=== PATIENT | female | born 1995 | race Caucasian/White ===

== ENCOUNTER 2017-01-22 13:33 | Inpatient (IN) | payer OTHER ==
[2017-01-22 14:24] LABS: #Basophils 0.1 thou/uL (0.0-0.2); #Eosinphils 0.2 thou/uL (0.0-0.7); #Lymphocytes 1.7 thou/uL (1.20-3.40); #Monocytes 0.3 thou/uL (0.11-0.59); #Neutrophils 9.9 thou/uL (1.40-6.50); %Basophils 0.5 % (0.0-1.0); %Eosinophils 1.7 % (0.0-10.0); %Lymphocytes 14.2 % (28.0-48.0); %Monocytes 2.8 % (0.0-4.0); Hematocrit 37.1 % (36.0-47.0); Mean Platelet Volume 10.7 fL (7.4-10.4); Red Blood Cell (RBC) Count 4.78 mill/uL (4.00-5.20); White Blood Cell (WBC) Count 12.2 thou/uL (4.8-10.8)
[2017-01-22] MEDS ORDERED: Ondansetron ODT 4 MG TAB ONE (14:26)
[2017-01-22 14:53] LABS: ALT (SGPT) 35 U/L (8-55); AST (SGOT) 63 U/L (5-34); Alkaline Phosphatase 159 U/L (40-150); Anion Gap 14 mmol/L (10-20); BUN (Urea Nitrogen) 6 mg/dL (7.0-18.7); Bilirubin, Total 0.7 mg/dL (0.2-1.2); Calc. Creatinine Clearance 0 mL/min (70-130); Calcium 9.6 mg/dL (7.8-10.44); Carbon Dioxide 22 mmol/L (22-29); Chloride 108 mmol/L (98-107); Estimated GFR-MDRD Greater than 90; Globulin 4.1 g/dL (2.4-3.5); Lipase 15 U/L (8-78); Protein, Total 7.8 g/dL (6.0-8.3)
[2017-01-22 15:21] LABS: Bilirubin Negative (Negative); Blood, Urine Negative (Negative); Glucose, Urine (Dipstick) Negative (Negative); Ketone, Urine Negative (Negative); Nitrite Negative (Negative); Protein, Urine (Dipstick) Trace mg/dL (Neg-Trace)
[2017-01-22 15:23] LABS: Bacteria/HPF Rare-Few HPF (None Seen); Hyaline Casts/LPF 4-6 HYALINE CAST LPF (0-3 Hyaline); RBC/HPF 0-3 HPF (0-3); Squamous Epithelial 0-3 HPF (0-3)
[2017-01-22 15:37] LABS: Yeast-All Forms None Seen HPF (None Seen)
--- NOTE | 2017-01-22 15:45 | ULT ---
RIGHT UPPER QUADRANT SONOGRAM: HISTORY: Right upper quadrant pain. FINDINGS: Multiple echogenic foci are again demonstrated within the dependent portion of the gallbladder lumen . There is no gallbladder wall thickening or pericholecystic fluid. Common duct is 0.5 cm diameter . Liver is unremarkable without focal mass or intrahepatic biliary dilatation. No free fluid is ap parent. IMPRESSION: Cholelithiasis. No evidence of acute biliary obstruction. POS: [facility]
[2017-01-22] MEDS ORDERED: Promethazine HCl 25 MG/ML VIAL IM PRN (17:00)
[2017-01-22] MEDS ORDERED: Ondansetron HCl/PF 4 MG/2 ML Vial IVP PRN (17:00)
[2017-01-22] MEDS ORDERED: Dextrose 5% in Water 1,000 ML IV PRN (17:00)
[2017-01-22] MEDS ORDERED: Dextrose 50% Abboject 50 ML SYRINGE SLOW IVP PRN (17:00)
[2017-01-22] MEDS ORDERED: Morphine Sulfate 2 MG/ML SYRINGE SLOW IVP PRN (17:00)
[2017-01-22] MEDS: D5 1/2 NS w/20 mEq KCL 1,000 ML IV SCH (20:18)
[2017-01-22] MEDS: Famotidine/PF 20 mg/2ml Vial SLOW IVP SCH (20:19)
--- NOTE | 2017-01-22 20:53 | HP ---
CHIEF COMPLAINT: Right upper quadrant abdominal pain. HISTORY OF PRESENT ILLNESS: The patient is a 21-year-old female who is 2 weeks , who deve loped severe right upper quadrant pain this morning after eating, associated with nausea. No vomiti ng, no fevers or chills. She has had several episodes of this while she was . PAST MEDICAL HISTORY: Asthma. PAST SURGICAL HISTORY: None. MEDICATIONS: None. ALLERGIES: No known drug allergies. SOCIAL HISTORY: She lives with her boyfriend. No tobacco or alcohol. She is unemployed. FAMILY HISTORY: Lupus. PHYSICAL EXAMINATION: VITAL SIGNS: Temperature 98.4, pulse 92 and blood pressure 116/71. GENERAL: The patient is awake and alert, in minimal distress. She appeared pale. HEENT: No obvious jaundice. LUNGS: Clear. HEART: Regular rate and rhythm. ABDOMEN: Soft, but tender in the right upper quadrant, plus/minus Madrigal sign. No palpable masses. EXTREMITIES: Unremarkable. LABORATORY DATA: White count 12, hemoglobin and hematocrit of 11 and 37, platelet count 354. Elect rolytes show a total bilirubin of 0.7, AST elevated at 63 and alkaline phosphatase at 159. IMAGING DATA: Ultrasound shows multiple cholelithiasis with no wall thickening or pericholecystic f luid. The common duct is 0.5 cm in diameter. ASSESSMENT: Early acute cholecystitis with elevated liver functions. PLAN: Admit laparoscopic cholecystectomy with cholangiogram. I have discussed the planned procedur e as well as risk of bleeding, infection, injury to bile duct, bowel and need to open. She understa nds and gives informed consent.
[2017-01-23 02:49] VITALS: BMI 26.5
[2017-01-23] MEDS: D5 1/2 NS w/20 mEq KCL 1,000 ML IV SCH ×4 (04:39→23:35)
[2017-01-23] MEDS ORDERED: Bupivacaine 0.25% HCL 30 ML VIAL ONE (09:00)
[2017-01-23] MEDS ORDERED: Iothalamate Meglumine 60% 50 ML VIAL FS ONE (09:00)
[2017-01-23] MEDS ORDERED: FLU VACC QS2017-18 36 mo. & older 0.5 ML SYRINGE IM ONE (09:00)
[2017-01-23] MEDS ORDERED: Midazolam HCl 2 mg/2 ml Vial ONE (09:01)
[2017-01-23] MEDS ORDERED: Fentanyl 100 MCG/2 ML VIAL ONE ×2 (09:01→10:25)
[2017-01-23] MEDS: Famotidine/PF 20 mg/2ml Vial SLOW IVP SCH ×2 (09:06→21:00)
[2017-01-23] MEDS ORDERED: Propofol 200 MG/20 ML VIAL ONE (09:15)
[2017-01-23] MEDS ORDERED: Lidocaine 1% PF 5 ML VIAL ONE (09:15)
[2017-01-23] MEDS ORDERED: Glycopyrrolate 0.2 MG/ML 5 ML SYRINGE ONE (09:15)
[2017-01-23] MEDS ORDERED: Ketorolac Tromethamine 30 MG/ML VIAL ONE (09:15)
[2017-01-23] MEDS ORDERED: Ondansetron HCl/PF 4 MG/2 ML Vial ONE (09:15)
[2017-01-23] MEDS ORDERED: Dexamethasone 20 MG/5 ML VIAL ONE (09:15)
[2017-01-23] MEDS ORDERED: Meperidine HCl/PF 25 MG/ML VIAL SLOW IVP PRN (09:39)
[2017-01-23] MEDS ORDERED: Ondansetron HCl/PF 4 MG/2 ML Vial IVP PRN ×2 (09:39→10:19)
[2017-01-23] MEDS ORDERED: Promethazine HCl 25 MG/ML VIAL SLOW IVP PRN (09:39)
[2017-01-23] MEDS ORDERED: Promethazine HCl 25 MG/ML VIAL IM PRN ×2 (09:39→10:19)
[2017-01-23] MEDS ORDERED: Albuterol Sulfate 1.25 MG/3 ML NEB ONE (10:17)
[2017-01-23] MEDS ORDERED: Calcium Carbonate 500 MG ChewTAB PO PRN (10:19)
[2017-01-23] MEDS ORDERED: Mag-Al 1200 mg/1200 mg/30 ML UDCUP PO PRN (10:19)
[2017-01-23] MEDS ORDERED: Dextrose 5% in Water 1,000 ML IV PRN (10:19)
[2017-01-23] MEDS ORDERED: Dextrose 50% Abboject 50 ML SYRINGE SLOW IVP PRN (10:19)
[2017-01-23] MEDS ORDERED: HYDROcodone/Acetaminophen 10/325 mg Tablet PO PRN ×2 (10:19)
--- NOTE | 2017-01-23 10:41 | RAD ---
INTRAOPERATIVE CHOLANGRAM FLUOROSCOPY: HISTORY: Cholecystitis. FINDINGS: Intraoperative fluoroscopy was provided for cholangiogram as performed by Dr. Obrien. Single spot fl uoroscopic image of the right upper quadrant shows operative hardware and a cystic duct remnant. Th ere is contrast opacification of a distended common duct. Meniscus sign is present at the central c ommon duct. Contrast has not passed into the duodenum, suggesting obstruction of the central common duct. Fluoro time=2 seconds. POS: [facility]
--- NOTE | 2017-01-23 10:42 | OP ---
PREOPERATIVE DIAGNOSIS: Symptomatic cholelithiasis with elevated liver function tests. SURGEON: Darren Obrien M.D. PROCEDURE PERFORMED: Laparoscopic cholecystectomy with cholangiogram. INDICATIONS: A 21-year-old female 2 weeks with severe right upper quadrant pain to the b day [facility]. Ultrasound showed cholelithiasis. She had some mild elevation of liver function tests. FINDINGS: She has single stone. The cystic duct was a little dilated. Cholangiogram showed what a ppears to be a distal common bile duct obstruction consistent with choledocholithiasis. DESCRIPTION OF THE PROCEDURE: After informed consent was obtained, the patient was taken to the ope rating room and given general endotracheal anesthesia. She was placed in supine position. The abdo men was prepped and draped in the usual fashion. Local anesthesia infiltrated subcutaneously and de ep, a subumbilical incision was performed. The subcu divided sharply. Fascia grasped and two stay sutures of 0 Vicryl placed to either side of midline. Midline incised. Digital palpation revealed no local adhesions. A blunt 10-12 mm trocar inserted. Pneumoperitoneum was created to a pressure o f 15 mmHg. A 0 degree laparoscope inserted and under direct vision, three 5 mm ports placed subcosta lly. The gallbladder grasped and advanced superiorly. Peritoneum lysed distally revealed small cys tic duct and artery. A clip was placed at the base of the gallbladder. An incision made in the cys tic duct and an Arrow cholangiocatheter inserted. Intraoperative cholangiogram performed, it did no t show any definite filling defects in the duct, but there was no flow into the duodenum and it appe ared as though it had a concave appearance like retained stone. Attempt at flushing this , bu t we got zero flow into the duodenum. The duct was triply ligated with Hemoclips and divided. The artery triply ligated with Hemoclips and divided. The gallbladder was removed from its fossa utiliz ing electrocautery, removed from the abdomen through the umbilical port. Hemostasis was assured. T rocars and retractors removed. The fascia closed with interrupted 0 Vicryl suture. The skin closed with interrupted 4-0 Rapide. Dermabond applied. The patient tolerated the procedure well and martinez sferred to recovery in good condition. Sponge and needle count verified correct x2.
[2017-01-23] MEDS: Ketorolac Tromethamine 30 MG/ML VIAL IVP SCH ×3 (12:48→23:31)
[2017-01-23 12:53] LABS: ALT (SGPT) 49 U/L (8-55); AST (SGOT) 90 U/L (5-34); Alkaline Phosphatase 168 U/L (40-150); Bilirubin, Direct 0.4 mg/dL (0.1-0.3); Bilirubin, Total 0.7 mg/dL (0.2-1.2); Protein, Total 6.7 g/dL (6.0-8.3)
--- NOTE | 2017-01-23 16:55 | CON ---
DATE OF CONSULTATION: 01/23/2017 REQUESTING PHYSICIAN: Dr. Obrien. REASON FOR CONSULTATION: Positive intraoperative cholangiogram. HISTORY OF PRESENT ILLNESS: Monica Heck is a very pleasant 21-year-old woman who is 2 weeks with a prior history only of asthma. She was admitted yesterday after acutely developing right upper quadrant pain and nausea. She had had a few episodes of this during her . Th is escalated prompting her presentation. She was found to have mild elevation in LFTs and an ultras ound showing cholelithiasis. So this morning, she underwent laparoscopic cholecystectomy with Dr. Claudette rivera. This went well. He performed an intraoperative cholangiogram and this demonstrated dilation of the proximal common hepatic duct with a meniscus sign in the central common bile duct and failure of contrast to pass into the duodenum, suggesting central common duct obstruction. The patient is currently feeling okay. She does continue to have abdominal pain in the upper abdomen. No vomiting since that procedure. REVIEW OF SYSTEMS: Full review of systems including constitutional, head, eyes, ears, nose, throat, GI, , cardiovascular, respiratory, musculoskeletal, and neurologic systems is negative except as noted in the HPI. PAST MEDICAL HISTORY: Asthma, cholelithiasis, cholecystectomy earlier today. ALLERGIES: No known drug allergies. OUTPATIENT MEDICATIONS: None. INPATIENT MEDICATIONS: Cefoxitin 2 grams q.8 hours IV, Toradol 30 mg IV q.6 hours, morphine IV p.r. n. SOCIAL HISTORY: No smoking or alcohol use. FAMILY HISTORY: Positive for lupus. PHYSICAL EXAMINATION: VITAL SIGNS: Temperature 97.6, pulse 59, blood pressure 95/62, 96% oxygen saturation on room air. GENERAL: A 21-year-old woman lying in bed comfortably in no distress. SKIN: No jaundice, no rashes were palpable. EYES: No scleral icterus. Extraocular movements intact. ENT: Mucous membranes moist, no oral lesions. LYMPH: No submandibular, supraclavicular lymphadenopathy. THYROID: Nontender to palpation. HEART: Regular rate and rhythm. LUNGS: Clear to auscultation bilaterally. ABDOMEN: Bowel sounds hypoactive, soft, some tenderness to palpation in the upper abdomen, but no g uarding, rebound tenderness. EXTREMITIES: No peripheral edema. VESSELS: Radial pulses 2+ bilaterally. NEUROLOGICAL: Cranial nerves II-XII intact bilaterally. No focal deficits. LABORATORY STUDIES: WBC 12.2, hemoglobin 11.4, platelets 354. Sodium 140, potassium 3.6, BUN 6, cr eatinine 0.66. Total bilirubin 0.7, direct bilirubin 0.4, alkaline phosphatase 168, AST 90, ALT 49, lipase 15. IMAGING STUDIES: Abdominal ultrasound from yesterday demonstrated cholelithiasis and common bile du ct measuring only 5 mm. However, intraoperative cholangiogram from earlier today demonstrated a mishel ling defect in the central common bile duct and failure of contrast to fill the common bile duct dis tally or enter the duodenum with proximal biliary dilation. ASSESSMENT AND PLAN: Choledocholithiasis. The patient's intraoperative cholangiogram findings are consistent with retained stone in the common bile duct. I had a long discussion with the patient ex plaining that endoscopic retrograde cholangiopancreatography is indicated for removal of this stone and clearance of the common bile duct. We discussed the benefits but also risks of the procedure in cluding post-ERCP pancreatitis. The patient expresses understanding and desires to proceed. We david l plan for ERCP tomorrow. Further recommendations following ERCP.
[2017-01-23] MEDS: Famotidine 20 MG TAB PO SCH (20:55)
[2017-01-24] MEDS: Ketorolac Tromethamine 30 MG/ML VIAL IVP SCH ×4 (06:07→23:45)
[2017-01-24 06:33] LABS: #Basophils 0.1 thou/uL (0.0-0.2); #Lymphocytes 2.6 thou/uL (1.20-3.40); #Monocytes 0.3 thou/uL (0.11-0.59); %Basophils 0.5 % (0.0-1.0); %Eosinophils 0.3 % (0.0-10.0); Hematocrit 31.2 % (36.0-47.0); Mean Platelet Volume 9.9 fL (7.4-10.4); Red Blood Cell (RBC) Count 3.97 mill/uL (4.00-5.20)
[2017-01-24 06:58] LABS: ALT (SGPT) 64 U/L (8-55); AST (SGOT) 79 U/L (5-34); Alkaline Phosphatase 167 U/L (40-150); Anion Gap 10 mmol/L (10-20); BUN (Urea Nitrogen) Less than 4 mg/dL (7.0-18.7); Bilirubin, Direct 0.2 mg/dL (0.1-0.3); Bilirubin, Total 0.4 mg/dL (0.2-1.2); Calc. Creatinine Clearance 183 mL/min (70-130); Calcium 8.8 mg/dL (7.8-10.44); Carbon Dioxide 23 mmol/L (22-29); Chloride 109 mmol/L (98-107); Estimated GFR-MDRD Greater than 90; Globulin 3.1 g/dL (2.4-3.5); Lipase 397 U/L (8-78); Protein, Total 6.1 g/dL (6.0-8.3)
[2017-01-24] MEDS: Famotidine 20 MG TAB PO SCH ×2 (08:38→21:01)
[2017-01-24] MEDS: Famotidine/PF 20 mg/2ml Vial SLOW IVP SCH ×2 (08:40→21:10)
[2017-01-24] MEDS ORDERED: Fentanyl 100 MCG/2 ML VIAL ONE (09:15)
[2017-01-24] MEDS ORDERED: Iothalamate Meglumine 60% 50 ML VIAL FS ONE (09:34)
[2017-01-24] MEDS ORDERED: Indomethacin 50 MG SUPP ONE (09:52)
[2017-01-24] MEDS ORDERED: Lidocaine 2% PF 10 ML AMP (For Epidural Use) ONE (10:00)
[2017-01-24] MEDS ORDERED: PHENYLEPHRINE-NS 100 MCG/ML 10 ML SYRINGE ONE (10:00)
[2017-01-24] MEDS ORDERED: Succinylcholine Chloride 20 MG/ML 10 ml SYRINGE FS ONE (10:00)
[2017-01-24] MEDS ORDERED: Propofol 200 MG/20 ML VIAL ONE (10:00)
[2017-01-24] MEDS ORDERED: Ondansetron HCl/PF 4 MG/2 ML Vial ONE (10:00)
[2017-01-24] MEDS ORDERED: Dexamethasone 20 MG/5 ML VIAL ONE (10:00)
[2017-01-24] MEDS ORDERED: Promethazine HCl 25 MG/ML VIAL SLOW IVP PRN (10:39)
[2017-01-24] MEDS ORDERED: Promethazine HCl 25 MG/ML VIAL IM PRN (10:39)
[2017-01-24] MEDS ORDERED: HYDROmorphone 2 MG/ML VIAL SLOW IVP PRN (10:39)
[2017-01-24] MEDS ORDERED: Ondansetron HCl/PF 4 MG/2 ML Vial IVP PRN (10:39)
--- NOTE | 2017-01-24 11:00 | RAD ---
ERCP INTRAOPERATIVE FLUOROSCOPY: HISTORY: Cholelithiasis. FINDINGS: Intraoperative fluoroscopy was provided for ERCP as performed by Dr. Scott. Single spot fluoroscopic image shows endoscopy catheter overlying the duodenum. There is contrast opacification of a nondil ated central common duct without focal filling defect evident. Metallic clips overlie the cystic du ct. POS: [facility]
[2017-01-24] MEDS ORDERED: Enoxaparin Sodium 40 MG/0.4 ML SYRINGE SC SCH (11:30)
[2017-01-24] MEDS: D5 1/2 NS w/20 mEq KCL 1,000 ML IV SCH (11:30)
--- NOTE | 2017-01-24 11:33 | PRG ---
DATE OF SERVICE: 01/24/2017 SUBJECTIVE: Patient is status post laparoscopic cholecystectomy yesterday on-call to have her ERCP. Pain is fine. No nausea. She is n.p.o. PHYSICAL EXAMINATION: VITAL SIGNS: Temperature 98.6, pulse 54, blood pressure 101/59. She looks fine. Really no obvious jaundice. LUNGS: Clear. HEART: Regular rate and rhythm. ABDOMEN: Soft. Postop tender. Incision is healing well. LABORATORY DATA: Bilirubin is normal. AST 79, ALT 64, alk phos 167, lipase 397. ASSESSMENT: Obstructed common duct consistent with retained stone. PLAN: ERCP today.
[2017-01-24] MEDS: Enoxaparin Sodium 40 MG/0.4 ML SYRINGE SC SCH ×2 (11:41→11:42)
--- NOTE | 2017-01-24 11:51 | OP ---
DATE OF PROCEDURE: 01/24/2017 GI ENDOSCOPY NOTE SURGEON: Rajeev Scott M.D. TRANSITION MGR RN SURGEON: None. PROCEDURE: Endoscopic retrograde cholangiopancreatography with biliary sphincterotomy and balloon s weep of common bile duct. INDICATIONS: A 21-year-old woman who underwent laparoscopic cholecystectomy yesterday with intraope rative cholangiogram showing meniscus and filling defect in the mid common bile duct consistent with choledocholithiasis. MEDICATIONS: 1. See anesthesia record. 2. Indomethacin 100 mg per rectum. FINDINGS: After discussion of the risks, benefits and alternatives of the procedure, informed conse nt was obtained and witnessed. Pre-endoscopic cardiopulmonary examination was satisfactory. Timeou t was performed before sedation was achieved. Sedation was achieved with anesthesia assistance in [facility] endoscopy unit. The patient was endotracheally intubated and placed in the semiprone position on the fluoroscopy table. A Pentax adult side-viewing duodenoscope was advanced through the mouth bey ond the esophagus and stomach and into the second portion of the duodenum. The ampulla was brought into view with the endoscope in the short position. The ampulla appeared erythematous and edematous . There was free flow of bile from the ampulla. Using a triple lumen dome tip sphincterotome and 0 .035 wire, we were able to selectively cannulate the common bile duct. The guidewire was passed up into the left intrahepatic system. Cholangiogram was then performed. This demonstrated a nondilate d bile duct with good filling of the right and left ducts as well as the peripheral branches. There were no clear filling defects noted on cholangiogram except for a possible meniscal sign in the pankaj y distal common bile duct. At this point, a biliary sphincterotomy was performed. The sphincteroto me was then exchanged for an 8-12 mm extraction balloon. This was passed up into the common bile du ct. Multiple sweeps were made of the common bile duct with the balloon fully inflated. The balloon was able to pass out of the ampulla easily. There were no stones or sludge extracted. Clear bile and contrast material flowed freely out of the ampulla. Occlusion cholangiogram showed clear common bile duct, one more sweep was made to sweep out excess contrast. The working apparatus was then wi thdrawn and the endoscope was withdrawn suctioning out excess air and fluid and the procedure was co mplete. Post-procedure fluoroscopic images demonstrated no retroperitoneal or subdiaphragmatic free air. The patient tolerated the procedure well. There were no immediate post-procedure complicatio ns. Note that she received 100 mg of rectal indomethacin during the procedure as prophylaxis agains t pancreatitis. IMPRESSION: 1. Normal common bile duct. 2. Edematous and erythematous ampulla, likely representing trauma from recent spontaneous passage o f common bile duct stone. 3. Successful biliary sphincterotomy and clear balloon sweep of the common bile duct. RECOMMENDATIONS: 1. Clear liquid diet, then advance diet as tolerated later today. 2. Monitor for any potential post-ERCP complications, including pancreatitis.
[2017-01-25] MEDS: Ketorolac Tromethamine 30 MG/ML VIAL IVP SCH ×2 (05:33→11:58)
[2017-01-25] MEDS: Famotidine 20 MG TAB PO SCH (09:00)
[2017-01-25] MEDS: Famotidine/PF 20 mg/2ml Vial SLOW IVP SCH (09:00)
[2017-01-25] MEDS ORDERED: Enoxaparin Sodium 40 MG/0.4 ML SYRINGE SC SCH (09:00)
--- NOTE | 2017-01-25 09:23 | PRG ---
DATE OF SERVICE: 01/25/2017 GI INPATIENT DAILY PROGRESS NOTE SUBJECTIVE: Ms. Heck is feeling a lot better today. No nausea or vomiting or abdominal pain. She is tolerating a regular diet. She is having bowel movements. She is eager to go home. OBJECTIVE: VITAL SIGNS: Temperature 97.8, pulse 57, blood pressure 127/82, 99% oxygen saturation on room air. GENERAL: No acute distress. HEART: Regular rate and rhythm. LUNGS: Clear to auscultation bilaterally. ABDOMEN: Soft and nontender to palpation. EXTREMITIES: No peripheral edema. ASSESSMENT AND PLAN: 1. Early cholecystitis, status post cholecystectomy. 2. Choledocholithiasis, now status post successful endoscopic retrograde cholangiopancreatography w ith biliary sphincterotomy and clear sweep of the common bile duct yesterday. There is no evidence of post endoscopic retrograde cholangiopancreatography pancreatitis. The patient seems to be recove ring well. From a GI standpoint, she could be discharged home. GI will sign off, but please call b ack with questions or concerns.
--- NOTE | 2017-01-25 11:24 | DIS ---
DISCHARGE DIAGNOSIS: Acute cholecystitis, abnormal cholangiogram. PROCEDURES DURING ADMISSION: Laparoscopic cholecystectomy with cholangiogram and endoscopic retrogr jane cholangiopancreatography with sphincterotomy. HOSPITAL COURSE: The patient was admitted. She had elevated liver function tests. She had gallsto abhijeet. She was taken to the operating room and underwent laparoscopic cholecystectomy with cholangiog kaylie. Cholangiogram showed no flow into the duodenum with a filling defect. GI was consulted. ERCP with sphincterotomy performed. Postoperatively, she did well. She is hungry. She is tolerating d iet well. Her pain is controlled on p.o. medications. She is discharged home on hydrocodone and Zo yeimi. She will follow up with me in 2 weeks.
[2017-01-25 11:32] VITALS: BP 102/63; TEMP 97.7
== END 2017-01-25 13:00 | disposition home or self-care (01) | DRG 769 ==
LOC: ERS 13:33 → SURG B 18:20
PROVIDERS: ADMIT Surgery; ATTEND Surgery
PROC: 0FT44ZZ Resection of Gallbladder, Percutaneous Endoscopic Approach (ICD-10-PCS; principal; 2017-01-23)
PROC: BF100ZZ Fluoroscopy of Bile Ducts using High Osmolar Contrast (ICD-10-PCS; 2017-01-23)
PROC: 0FJB8ZZ Inspection of Hepatobiliary Duct, Via Natural or Artificial Opening Endoscopic (ICD-10-PCS; 2017-01-24)
PROC: BF100ZZ Fluoroscopy of Bile Ducts using High Osmolar Contrast (ICD-10-PCS; 2017-01-24)
DX: O99.63 Diseases of the digestive system complicating the puerperium (principal); K80.00 Calculus of gallbladder with acute cholecystitis without obstruction; J45.909 Unspecified asthma, uncomplicated; R93.2 Abnormal findings on diagnostic imaging of liver and biliary tract; Z83.2 Family history of diseases of the blood and blood-forming organs and certain disorders involving the immune mechanism
CPT/HCPCS: 36415; 47532; 74330; 76705; 80053; 80076; 81003; 81015; 81025; 83690; 85025; 87086; 88304; 94760; 96361; 96374; J0131; J0694; J1100; J1610; J1650; J1885; J2001; J2250; J2270; J2405; J2704; J3010; J7050; Q0162; Q9961; S0020; S0028

== ENCOUNTER 2017-07-20 08:45 | Emergency (ER) | payer MEDICAID, OTHER ==
[2017-07-20 09:23] LABS: #Eosinphils 0.3 thou/uL (0.0-0.7); #Lymphocytes 2.2 thou/uL (1.20-3.40); #Monocytes 0.3 thou/uL (0.11-0.59); #Neutrophils 2.7 thou/uL (1.40-6.50); %Basophils 0.1 % (0.0-1.0); %Eosinophils 4.8 % (0.0-10.0); %Lymphocytes 40.3 % (28.0-48.0); %Neutrophils 48.8 % (31.0-61.0); Hemoglobin 11.4 g/dL (12.0-16.0); Mean Corpuscular HGB CONC 32.1 g/dL (32.0-36.0); Mean Corpuscular Hemoglobin 24.7 pg (25.0-35.0); Mean Corpuscular Volume 76.8 fl (77.0-87.0); Mean Platelet Volume 9.3 fL (7.4-10.4); Platelet Count 234 thou/uL (130-400); RBC Distribution Width 16.1 % (11.5-14.5); Red Blood Cell (RBC) Count 4.61 mill/uL (4.00-5.20); White Blood Cell (WBC) Count 5.4 thou/uL (4.8-10.8)
[2017-07-20 09:38] LABS: BHCG - Serum POSITIVE (NEGATIVE); Pregs Control Background? CLEAR/WHITE (CLR/WHITE); Pregs Control Bar Appear? YES (CONTROL BAR)
[2017-07-20 09:46] LABS: ALT (SGPT) 21 U/L (8-55); AST (SGOT) 24 U/L (5-34); Albumin 3.7 g/dL (3.5-5.0); Alkaline Phosphatase 73 U/L (40-150); Anion Gap 9 mmol/L (10-20); BUN (Urea Nitrogen) 4 mg/dL (7.0-18.7); Bilirubin, Total 0.6 mg/dL (0.2-1.2); Calc. Creatinine Clearance 0 mL/min (70-130); Calcium 8.7 mg/dL (7.8-10.44); Carbon Dioxide 21 mmol/L (22-29); Chloride 108 mmol/L (98-107); Estimated GFR-MDRD Greater than 90; Globulin 3.3 g/dL (2.4-3.5); Glucose 89 mg/dL (70-105); Sodium 134 mmol/L (136-145)
--- NOTE | 2017-07-20 11:15 | ULT ---
PELVIC ULTRASOUND: History: 21-year-old female with pelvic pain. Technique: Transabdominal and endovaginal ultrasound of the pelvis performed. FINDINGS: Uterine size is upper normal range at 9.7 x 5.4 x 5.4 cm. Endometrial stripe is thickened and there is evidence of a circumscribed fluid collection within the endometrial cavity which would suggest a small gestational sac. There is no evidence of yolk sac or f etal pole. The small gestational sac measurements would indicate a 5 week 2 day gestational age. The ovaries are identified and appear unremarkable. Color doppler with spectral analysis demonstrates blood flow to both ovaries. IMPRESSION: There is evidence of a tiny gestational sac in the endometrial cavity with gestational sac size of 5 weeks 2 day gestational age. Recommend correlation with serum HCG level. A pseudogestational sac with ectopic is not excluded. Close follow up recommended. POS: [facility]
== END 2017-07-20 11:33 | disposition home or self-care (01) ==
LOC: ERS 08:45
DX: O99.89 Other specified diseases and conditions complicating pregnancy, childbirth and the puerperium (principal); R10.33 Periumbilical pain; J45.909 Unspecified asthma, uncomplicated; Z3A.01 Less than 8 weeks gestation of pregnancy
CPT/HCPCS: 36415; 76856; 80053; 83605; 84702; 84703; 85025

== ENCOUNTER 2017-09-13 14:25 | Emergency (ER) | payer OTHER, SELFPAY ==
[2017-09-13 15:31] LABS: Bilirubin Small (Negative); Blood, Urine Negative (Negative); Clarity CLOUDY (Clear); Glucose, Urine (Dipstick) Negative (Negative); Leukocyte Moderate (Negative); Nitrite Negative (Negative); Protein, Urine (Dipstick) Negative (Neg-Trace); Specific Gravity, Urine 1.023 (1.002-1.036)
[2017-09-13 15:32] LABS: Pregnancy Test - Urine (BHCG) POSITIVE (Negative); Pregu Control Background? CLEAR/WHITE (CLR/WHITE); Pregu Control Bar Appear? YES (CONTROL BAR); Specific Gravity 1.023 (1.002-1.036)
[2017-09-13 15:33] LABS: Hyaline Casts/LPF 4-6 HYALINE CAST LPF (0-3 Hyaline); Pathc Cast-AUWi Flag 1.16 (0-2.49)
[2017-09-13 15:35] LABS: Yeast-AUWi Flag 37.3 (0-25.0)
[2017-09-13 15:43] LABS: Bacteria/HPF 1+ HPF (None Seen); RBC/HPF None Seen HPF (0-3); Yeast-All Forms 1+ HPF (None Seen)
--- NOTE | 2017-09-13 17:47 | ULT ---
OB ULTRASOUND: HISTORY: The patient returned from [place], where she had a massage, and she has been having back pain since. COMPARISON: Pelvic ultrasound from 07/20/2017. TECHNIQUE: Sagittal and transverse imaging of a gravid uterus is performed. FINDINGS: Cervical length is 3.3 cm. There is a posterior placenta. No definite previa. lie is transve rse. heart tones with a rate of 162 beats per minute. BIOMETRY: BPD: 2.22 cm (13 weeks 5 days) HEAD CIRCUMFERENCE: 8.57 cm (13 weeks 5 days) ABDOMINAL CIRCUMFERENCE: 8.34 cm (14 weeks 5 days) FEMUR LENGTH: 1.12 cm (13 weeks 2 days) AVERAGE AGE BY SONOGRAPHY: 13 weeks 5 days ESTIMATED DELIVERY DATE: 03/19/2018 IMPRESSION: Single intrauterine gestation with heart tones. Average age by sonography is 13 weeks 5 days. POS: [facility]
== END 2017-09-13 17:29 | disposition home or self-care (01) ==
LOC: ERS 14:25
DX: O23.41 Unspecified infection of urinary tract in pregnancy, first trimester (principal); O99.511 Diseases of the respiratory system complicating pregnancy, first trimester; J45.909 Unspecified asthma, uncomplicated; Z3A.13 13 weeks gestation of pregnancy
CPT/HCPCS: 36415; 76805; 81003; 81015; 81025; 84702; 86900; 86901; 87086; 87804

== ENCOUNTER 2017-10-05 00:49 | Emergency (ER) | payer MEDICAID, OTHER ==
--- NOTE | 2017-10-05 08:35 | ULT ---
PRELIMINARY REPORT/[facility]/EMERGENTY AFTER-HOURS PROCEDURE US Duplex Left Lower Extremity Veins CLINICAL HISTORY: 22 years old, female; Pain; Leg, upper; Left; Patient HX: Left lower thigh pain, near knee; Additiona l info: Pt. 14 wks TECHNIQUE: Real-time duplex ultrasound scan of the left lower extremity veins integrating B-mode two dimensional vascular structure, Doppler spectral analysis, color flow Doppler imaging and compression. COMPARISON: No relevant prior studies available. FINDINGS: Deep veins: Unremarkable. No DVT in the visualized common femoral, femoral, proximal deep femoral or popliteal veins. The veins demonstrate normal color flow, are normally compressible, with normal phas ic flow and/or augmentation response. Superficial veins: Unremarkable. No thrombus in the visualized great saphenous vein. Soft tissues: No acute findings. No popliteal cyst. IMPRESSION: Normal left lower extremity duplex venous ultrasound. Thank you for allowing us to participate in the care of your patient. Dictated and Authenticated by: Chester Hoyos MD 10/05/2017 3:58 AM Central Time ([place] & [place]) FINAL REPORT VENOUS DUPLEX SONOGRAM LEFT LOWER EXTREMITY: DATE: 10/05/17. TIME: Performed on an emergency basis at 0240 hours. HISTORY: Left leg pain and edema. FINDINGS: Agree with the preliminary report by Dr. Hoyos from [facility]. Good color and spectral Dop pler flow. No sonographic evidence of DVT left lower extremity. POS: [facility]
== END 2017-10-05 03:34 | disposition home or self-care (01) ==
LOC: ERS 00:49
DX: O99.89 Other specified diseases and conditions complicating pregnancy, childbirth and the puerperium (principal); M25.562 Pain in left knee; O99.511 Diseases of the respiratory system complicating pregnancy, first trimester; J45.909 Unspecified asthma, uncomplicated; Z3A.13 13 weeks gestation of pregnancy

== ENCOUNTER 2018-01-24 18:29 | Day surgery (SDC) | payer OTHER ==
[2018-01-24 19:13] VITALS: BP 117/65; TEMP 99.5; BMI 29.7
[2018-01-24] MEDS ORDERED: Ondansetron ODT 8 MG TAB SL PRN (19:23)
[2018-01-24 19:53] LABS: Bilirubin Negative (Negative); Blood, Urine Negative (Negative); Clarity CLOUDY (Clear); Glucose, Urine (Dipstick) Negative (Negative); Leukocyte Small (Negative); Nitrite Negative (Negative); Protein, Urine (Dipstick) Trace mg/dL (Neg-Trace); Specific Gravity, Urine 1.024 (1.002-1.036); Urobilinogen 0.2 mg/dL (0.2-1.0); pH, Urine 7.5 (5.0-9.0)
[2018-01-24 19:57] LABS: Pathc Cast-AUWi Flag 3.48 (0-2.49)
[2018-01-24 20:17] LABS: Bacteria/HPF 1+ HPF (None Seen); Hyaline Casts/LPF 0-3 HYALINE CAST LPF (0-3 Hyaline); RBC/HPF 0-3 HPF (0-3)
[2018-01-24 20:50] LABS: FFN Internal QC Analyzer PASS (PASS); FFN Internal QC Cassette PASS (PASS); Fetal Fibronectin Negative (Negative)
[2018-01-24] MEDS ORDERED: Acetaminophen 500 MG TAB PO SCH (21:00)
[2018-01-24 21:27] LABS: Bilirubin Negative (Negative); Blood, Urine Small (Negative); Clarity CLEAR (Clear); Glucose, Urine (Dipstick) Negative (Negative); Leukocyte Negative (Negative); Nitrite Negative (Negative); Protein, Urine (Dipstick) Negative (Neg-Trace); Specific Gravity, Urine 1.009 (1.002-1.036); Urobilinogen 0.2 mg/dL (0.2-1.0); pH, Urine 7.5 (5.0-9.0)
[2018-01-24 21:28] LABS: Bacteria/HPF None Seen HPF (None Seen); Hyaline Casts/LPF 0-3 HYALINE CAST LPF (0-3 Hyaline); Pathc Cast-AUWi Flag 0.14 (0-2.49); Squamous Epithelial 0-3 HPF (0-3); WBC/HPF None Seen HPF (0-3)
--- NOTE | 2018-01-25 00:44 | PRG ---
DATE OF SERVICE: 01/24/2018 PRIMARY OB: Clinic. CHIEF COMPLAINT: Abdominal pain. HISTORY OF PRESENT ILLNESS: This is a 22-year-old with an iup 32 weeks and 2 days who is presenting to Labor and Delivery with complaints of uterine contractions and abdominal pain. She is unable to describe the frequency of these contractions, but does state that her abdomen gets hard and soft. In addition, she also has stabbing pains in the sides of her abdomen and in her lower back. They get worse with the contractions. The patient reports all this began 3-4 hours prior to presentation. PT denies fever, headache, illness, fall, chest pain, shortness of breath. Pt had one episode of vomiting while being transported to L&D. She denies diarrhea, constipation, new rashes, vaginal bleeding, hip problems, muscle weakness, urinary urgency. PAST MEDICAL HISTORY: Asthma and anemia. PAST SURGICAL HISTORY: Cholecystectomy. ALLERGIES: No known drug allergies. MEDICATIONS: vitamins and iron. SOCIAL HISTORY: Denies drug, alcohol or tobacco use. OB LABS: Blood type is O positive. Hepatitis A antibody screen is negative. She is rubella immune, hepatitis B surface antigen is nonreactive. RPR is nonreactive. GC and chlamydia are negative. One hour Glucola was 133. Pap smear shows a low grade intraepithelial lesion. REVIEW OF SYSTEMS: Per HPI. PHYSICAL EXAMINATION: VITAL SIGNS: Blood pressure is 117/65, heart rate of 90, respiratory rate 18, temperature 99.5. GENERAL: She appears to be in no acute distress. She is alert and oriented, cooperative and pleasant to interact with. HEENT: Normocephalic, atraumatic. LUNGS: Clear to auscultation bilaterally. HEART: Regular rate and rhythm. ABDOMEN: Soft and gravid. She does have tenderness to palpation with deviation of the uterus and with pains being located on the sides. She also has some SI joint tenderness to palpation. EXTREMITIES: Nontender with minimal edema. Vulva is without masses, lesions or erythema. Speculum exam the patient has moderate amount of discharge, white in color. Cervix appears to be closed. fibronectin and DRIP BOX TENDER-3 are collected. On digital exam, cervix is closed. heart tracing performed and noted to be with a baseline in the 150s with moderate long-term variability, positive 15 x 15 accelerations and no decelerations. Tocometer shows some possible irritability, but no real consistent contraction pattern. LABORATORY STUDIES: Fibronectin is negative. Urinalysis is negative for protein, glucose, nitrites, leukocyte esterase, bacteria. DRIP BOX TENDER-3 is negative for yeast, Trichomonas or Gardnerella. ASSESSMENT AND PLAN: The patient is a 22-year-old female with an intrauterine at 32 weeks and 2 days who has musculoskeletal pains with . There is no evidence of labor, vaginal infection, or urinary tract infection. She has been given instructions to take 2 Tylenol 3 times a day as needed for pain. She has been counseled that her risk for labor in the next 2 weeks is minimal and has been encouraged to keep her appointment tomorrow as scheduled. YANET
== END 2018-01-24 21:55 | disposition home or self-care (01) ==
LOC: L&D/OP 18:29
PROVIDERS: ATTEND Family Medicine
DX: O99.89 Other specified diseases and conditions complicating pregnancy, childbirth and the puerperium (principal); R10.9 Unspecified abdominal pain; M54.5 Low back pain; O99.013 Anemia complicating pregnancy, third trimester; D64.9 Anemia, unspecified; O99.513 Diseases of the respiratory system complicating pregnancy, third trimester; J45.909 Unspecified asthma, uncomplicated; Z3A.32 32 weeks gestation of pregnancy; Z79.899 Other long term (current) drug therapy
CPT/HCPCS: 81001; 82731; 87480; 87510; 87660; 99285; A4353

== ENCOUNTER 2018-03-04 14:00 | Day surgery (SDC) | payer OTHER ==
[2018-03-04 14:30] VITALS: BMI 28.8
--- NOTE | 2018-03-04 15:23 | PDOC.EVN ---
Event Note - Event Note Event Note: Seen and evaluated by inpatient team for a knot on her belly that the FOB noticed yesterday. Knot is slightly painful to palpation. No overlying erythema or cellulitis. There is no defect in abdominal wall consistent with hernia. No evidence for diastasis recti. Patient denies n/v/d, hematochezia, melena, dysuria. U/S consistent with adipose tissue. FHT category 1 with accels and no contractions. Will discharge home at this time with close f/u at [facility].
== END 2018-03-04 15:24 | disposition home health service (06) ==
LOC: L&D/OP 14:00
PROVIDERS: ATTEND Family Medicine
DX: O99.89 Other specified diseases and conditions complicating pregnancy, childbirth and the puerperium (principal); R19.09 Other intra-abdominal and pelvic swelling, mass and lump; Z79.899 Other long term (current) drug therapy
CPT/HCPCS: 99282

== ENCOUNTER 2018-03-13 03:29 | Day surgery (SDC) | payer OTHER ==
[2018-03-13 04:15] VITALS: BP 111/77; TEMP 98; BMI 29.6
--- NOTE | 2018-03-13 05:10 | PDOC.FPROB ---
Addendum entered and electronically signed by Anette Le MD 03/13/18 07:53 : Patient in latent labor. Obtained GBS flu swab as there was no result in the paper work. Patient UA neg for infection. Encourage PO hydration. Hydroxyzine prescription sent. Patient discharged home with labor precautions. Original Note: FMR OB H&P: HPI - History of Present Illness Chief Complaint: CTX History of Present Illness: This is a 22 yo @ 39.1wks by LMP/13.5wk US presenting with CTX and inability to urinate. Patient states she woke up abruptly at 0300 with low back pain. Patient said she tried to urinate and was unable to. Patient states she is not sure how far apart her CTX were. Patient was able to void upon arrival to the floor and had relief of back pain. Patient states she is still feeling CTX. Patient endorses anemia of and has been taking iron until a few days ago. Of note, patient has had incomplete care - she traveled to [place] and was there for about 3 months. Patient states she got back from [place] about 1 month ago and kept forgetting about her appointments. Patient endorses +FM. Denies LOF, vaginal bleeding, headache, vision changes. Endorses LE swelling that is normal. Primary Care Physician: Liliana FMR OB H&P: Current - Care : 4 Para: 1 Gestational age: 39.1wks Due date: 03/19/18 Dating Criteria: 13.5wk US - OB Labs Blood type: O RH: positive Antibody Screen: negative HIV: negative RPR: negative HepBsAg: negative Rubella: immune Gonorrhea: negative Chlamydia: negative 1 hour gtt: 133 GBS: negative H&H: 8.4, 26.4 Platelets: 253 - First Trimester Ultrasound First trimester: On 11/01/17: Placenta posterior, no abnormalities noted - Anatomy Survey Anatomy survey: Exam on 11/01/17: EFW 87%, BPD 42%, HC 33% FMR OB H&P: History - Past Medical History PMH: asthma - no recent exacerbations - OB History OB History: 2017 - viable F, no issues 2 previous miscarriages in 1T - 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: Pap performed this : LSIL w/ HRHPV - Surgical History Sx History: cholecystectomy - Social History Social History: denies smoking, alcohol or drug use - Family History Family History: maternal side cousin with Trisomy 21; Grandmother with DM; cousin with lupus FMR OB H&P: Medications - Current Home Medications: Medication Instructions Recorded Confirmed Type Ferrous Sulfate [Feosol] 325 mg PO BID-WM #60 tab 03/13/18 Rx Vit,Calc76/Iron/Folic 1 tablet PO DAILY #30 tablet 03/13/18 Rx [Pnv 29-1 Tablet] hydrOXYzine HCl [Hydroxyzine HCl] 25 mg PO Q6HR PRN #30 tablet 03/13/18 Rx Allergies/Adverse Reactions: Allergies Allergy/AdvReac Type Severity Reaction Status Date / Time No Known Drug Allergies Allergy Verified 03/13/18 04:16 FMR OB H&P: ROS - Review of Systems General: denies: fever/chills, weight/appetite/sleep changes, night sweats Eyes: denies: eye pain, vision changes, double vision, scotomas, floaters ENT: denies: nasal congestion, rhinorrhea Cardiovascular: reports: edema. denies: chest pain, palpitation Respiratory: denies: cough, congestion, shortness of breath Gastrointestinal: denies: abdominal pain, indigestion, bloating, cramping, nausea, vomiting, diarrhea, constipation Genitourinary (Female): reports: hesitancy, contractions, vaginal pressure. denies: incontinence, dysuria, hematuria, polyuria, vaginal discharge, vaginal pain, vaginal bleeding, vaginal mass/sore Musculoskeletal: denies: pain, stiffness Integumentary: denies: itching, rash, lesions FMR OB H&P: Vital Signs - Maternal Vital signs: Vital Signs - First Documented Temp Pulse Resp BP 98 F 86 20 111/77 03/13/18 04:08 03/13/18 04:08 03/13/18 04:08 03/13/18 04:08 - Heart Tones Baseline: 140 Variability: moderate Acceleration: present Deceleration: absent Category: category 1 [place] contractions every: 6-7 min FMR OB H&P: Physical Exam - Physical Exam General: NAD, awake, alert and oriented HEENT: normocephalic and atraumatic, PERRLA, EOMI, MMM, grossly normal vision, grossly normal hearing Neck: supple, FROM, trachea midline Chest: non-tender to palpation, no lesions Heart: RRR, normal S1/S2, no murmurs/rubs/gallops, other (+1 edema in LLE, trace in RLE) General: CTAB, no respiratory distress, good air movement, no wheezing Abdomen: soft, gravid, non-tender, bowel sound present, no masses Musculoskeletal: normal gait and station, pulses present, FROM in all four extremities Skin: no rash (bee sting to LLE, no warmth or erythema) Psychiatric: intact recent and remote memory, good judgement and insight, normal mood and affect FMR OB H&P: A/P - Problem List (1) Anemia affecting Status: Acute Code(s): O99.019 - ANEMIA COMPLICATING , UNSPECIFIED TRIMESTER Comment: -s/p iron infusion x2 (2) Intrauterine Status: Acute Code(s): Z34.90 - ENCNTR FOR SUPRVSN OF NORMAL , UNSP, UNSP TRIMESTER Disposition: IUP - Pt checked at 0400: /-3 - Will recheck in 2 hours for cervical change - Will PO hydrate - Obtain UA - Encourage ambulation - FHT: FHR: 140, + accels, no decels - CTX every 6-7 min, patient resting and breathing through CTX Anemia of - last hemoglobin 8.4 - Continue iron supplementation - Will continue to monitor and consider getting H&H Possible Zika Exposure - in clinic appointment on 09/15 reported flu-like illness w/ rash - zika IgM and IgG and dengue fever - neg - 1T US: EFW 87%, BPD 42%, HC 33% - pt went back to [place] during DISPO: will recheck patient at 0600, if unchanged will likely send home with labor precautions Discussion: Date/Time: 03/13/18 8139 This H&P was discussed with Dr. Jeronimo and Dr. Lopez who agree with the above documentation and plan. 22 yo @ 39.1 wks by LMP/13.5 wk sono who presents with contractions and difficulty urinating. Denies fever, LOF, and decrease in FM AVSS Cat 1 strip 1. Labor check - pt not currently in active labor. will PO hydrate and recheck in 2 hours to assess for cervical change. 2. Inconsistent care 3. Zika exposure - normal 2T US. No abnormalities noted 4. LSIL with HRHPV+ - pt will need colpo PP 5. Anemia of - Hgb 8.4, continue PO iron supplementation Attending Addendum - Attending Addendum Date/Time: 03/13/18 0841 I personally evaluated the patient and discussed the management with Dr. Jeronimo and Dr. Le I agree with the History, Examination, Assessment and Plan documented above with any addition or exceptions noted below. FHT reactive, reassuring, cat 1 No evidence of UTI. Latent labor. SVE 2/60/-3 with minimal tar heat exchanger cleaner 3 hours. Ok to d/c to home. GBS swab prior to d/c. ER/labor precautions discussed. Stacie
[2018-03-13 05:59] LABS: Bilirubin Negative (Negative); Blood, Urine Negative (Negative); Clarity CLEAR (Clear); Glucose, Urine (Dipstick) Negative (Negative); Leukocyte Small (Negative); Nitrite Negative (Negative); Protein, Urine (Dipstick) Negative (Neg-Trace); Specific Gravity, Urine 1.017 (1.002-1.036)
[2018-03-13 06:03] LABS: Bacteria/HPF Rare-Few HPF (None Seen); Hyaline Casts/LPF 0-3 HYALINE CAST LPF (0-3 Hyaline); Pathc Cast-AUWi Flag 0.43 (0-2.49)
== END 2018-03-13 07:35 | disposition home or self-care (01) ==
LOC: L&D/OP 03:29
PROVIDERS: ATTEND Family Medicine
DX: O47.1 False labor at or after 37 completed weeks of gestation (principal); O99.013 Anemia complicating pregnancy, third trimester; D64.9 Anemia, unspecified; O28.2 Abnormal cytological finding on antenatal screening of mother; Z3A.39 39 weeks gestation of pregnancy; Z79.899 Other long term (current) drug therapy
CPT/HCPCS: 81003; 81015; 87081; 99283

== ENCOUNTER 2018-03-14 20:39 | Day surgery (SDC) | payer OTHER ==
[2018-03-14 21:03] VITALS: BMI 29.1
[2018-03-14 21:08] VITALS: BP 119/74; TEMP 98
[2018-03-14] MEDS ORDERED: Acetaminophen 500 MG TAB PO SCH (22:00)
[2018-03-14] MEDS ORDERED: hydrOXYzine 25 MG TAB PO SCH (22:00)
--- NOTE | 2018-03-14 22:25 | PDOC.FPROB ---
FMR OB H&P: HPI - History of Present Illness Chief Complaint: CTX Indentification: 22yo @ 39.2wks by LMP/13.5wk US History of Present Illness: This is a 22 yo G 4P1 @ 39.2wks by LMP/13.5wk US presenting with CTX. Patient was here yesterday for inability to urinate and CTX. Patient Stathes that she has had continued CTX occurring every 9 min. Patient endorses +FM. Denies LOF, vag bleeding, discharge, dysuria, incontinence, [place], vision changes. Patient endorses LE swelling. Patient was sent home with hydroxyzine yesterday. She states it did relieve her pain, but made her sleepy. Primary Care Physician: Liliana FMR OB H&P: Current - Care : 4 Para: 1 Gestational age: 39.2 Due date: 03/20/18 Dating Criteria: LMP/13.5wk US - OB Labs Blood type: O RH: positive Antibody Screen: negative HIV: negative RPR: negative HepBsAg: negative Rubella: immune Quad screen: unknown Urine drug screen: not done Gonorrhea: negative Chlamydia: negative 1 hour gtt: 133 GBS: unknown (pending - GBS swabbed on 03/13) H&H: 8.4, 26.4 Platelets: 253 - First Trimester Ultrasound First trimester: 11/01/17: posterior placenta, no abnormalities noted - Anatomy Survey Anatomy survey: 11/01/17: EFW 87%, BPD 42%, HC 33% FMR OB H&P: History - Past Medical History PMH: asthma - no recent exacerbations - OB History OB History: 2017 - viable F, no issues 2 previous miscarriages in 1T - 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: pap performed this : LSIL w/ HRHPV, will need culpo - Surgical History Sx History: cholecystectomy - Social History Social History: denies smoking, alcohol or drug use - Family History Family History: Maternal side cousin with Trisomy 21; Grandmother with DM; cousin with SLE FMR OB H&P: Medications - Current Home Medications: Medication Instructions Recorded Confirmed Type Ferrous Sulfate [Feosol] 325 mg PO BID-WM #60 tab 03/13/18 Rx Vit,Calc76/Iron/Folic 1 tablet PO DAILY #30 tablet 03/13/18 Rx [Pnv 29-1 Tablet] hydrOXYzine HCl [Hydroxyzine HCl] 25 mg PO Q6HR PRN #30 tablet 03/13/18 Rx Acetaminophen [Tylenol Extra 500 mg PO NOW tab 03/14/18 Rx Strength] hydrOXYzine [Atarax] 25 mg PO NOW tab 03/14/18 Rx Allergies/Adverse Reactions: Allergies Allergy/AdvReac Type Severity Reaction Status Date / Time No Known Drug Allergies Allergy Verified 03/14/18 21:12 FMR OB H&P: ROS - Review of Systems General: denies: fever/chills, weight/appetite/sleep changes, night sweats, fatigue Eyes: denies: eye pain, vision changes, double vision, scotomas, floaters ENT: denies: nasal congestion Cardiovascular: reports: edema. denies: chest pain, palpitation Respiratory: denies: cough, congestion, shortness of breath Gastrointestinal: denies: abdominal pain, indigestion, bloating, cramping, nausea, vomiting, diarrhea, constipation Genitourinary (Female): reports: contractions, vaginal pressure. denies: incontinence, dysuria, hesitancy, vaginal discharge, vaginal pain, vaginal bleeding Musculoskeletal: denies: pain, stiffness, tenderness Integumentary: denies: itching, rash, lesions FMR OB H&P: Vital Signs - Maternal Vital signs: Vital Signs - First Documented Temp Pulse Resp BP 98.0 F 98 19 119/74 03/14/18 20:58 03/14/18 20:58 03/14/18 20:58 03/14/18 20:58 - Heart Tones Baseline: 140 Variability: moderate Acceleration: present Deceleration: absent Category: category 1 [place] contractions every: every 8-10 min FMR OB H&P: Physical Exam - Physical Exam General: NAD, awake, alert and oriented HEENT: normocephalic and atraumatic, PERRLA, EOMI, MMM, grossly normal vision, grossly normal hearing Neck: supple, FROM, trachea midline Chest: non-tender to palpation, no lesions Heart: RRR, normal S1/S2, no murmurs/rubs/gallops, pulses present General: CTAB, no respiratory distress, good air movement, no wheezing Abdomen: soft, gravid, non-tender Musculoskeletal: normal gait and station, pulses present, FROM in all four extremities Skin: no rash, good tugor, capillary refill <2 seconds Psychiatric: intact recent and remote memory, normal mood and affect - Pelvic Exam Vulva: normal hair distribution SVE: 2/60/-2 Mancia score: 6 FMR OB H&P: A/P Disposition: IUP, latent labor - Patient has unchanged cervical check from over 24 hours ago - Will discharge patient with labor precautions including but not limited to: - CTX ever 3-5min for over an hour with difficulty breathing or talking through - dec FM or LOF or vag bleeding - Encouraged PO hydration and ambulation - FHT: cat 1 - continue taking hydroxyzine and tylenol for pain Anemia of - continue w/ iron GBS unknown - pending Case discussed with Dr. Nichole Discussion: Date/Time: 03/14/18 6173 This H&P was discussed with [] and [] who agree with the above documentation and plan. Attending Addendum - Attending Addendum Date/Time: 03/15/18 8787 I personally evaluated the patient and discussed the management with Dr. Le. I agree with and repeated the History, Examination, Assessment and Plan documented above with any addition or exceptions noted below. Infrequent and inconsistent ctx. No LOF. Discussed walking vs going home and patient would like to be discharged. OBT warnings discussed in detail.
== END 2018-03-14 22:38 | disposition home or self-care (01) ==
LOC: L&D/OP 20:39
PROVIDERS: ATTEND Family Medicine
DX: O47.1 False labor at or after 37 completed weeks of gestation (principal); Z3A.39 39 weeks gestation of pregnancy
CPT/HCPCS: 99282

== ENCOUNTER 2018-03-16 17:59 | Inpatient (IN) | payer OTHER ==
[2018-03-16 18:44] VITALS: BMI 29.1
--- NOTE | 2018-03-16 18:59 | PDOC.LDHP ---
Labor and Delivery H&P Chief complaint: contractions HPI: 22 yo @40 weeks presented c/o ctx for last 2-3 days now increasing in intensity. Denies any LOF, VB. (+) FM. Current gestational age (weeks): 40 Due date: 03/16/18 Dating criteria: last menstrual period Grav: 4 Para: 1 OB History Details: h/o travel to [place] during this Intermittent PNC Current complications: none Abnormal US findings: No Past Medical History: Anemia Current medications: pre- vitamins Previous surgical history: none Allergies/Adverse Reactions: Allergies Allergy/AdvReac Type Severity Reaction Status Date / Time No Known Drug Allergies Allergy Verified 03/16/18 18:44 Social history: none - Physical Exam Vital signs reviewed and normal: yes General: NAD Heart: RRR Lungs: CTAB Abdomen: gravid Extremeties: pitting edema FHT: category 1 [place] contractions every: q4-5 min - Vaginal Exam cm dilated: 4 Effacement: 50% Station: -2 - OB Labs Blood type: O RH: positive Antibody Screen: negative HIV: negative RPR: negative HEPSAg: negative 1 hour GCT: negative GBS: negative Rubella: non-immune - Plan -: A/P: 10 IUP @ 39 4/7 weeks in early labor. Will send patient to ambulate for 2 hours and recheck. Category 1 FHTs. GBS negative
--- NOTE | 2018-03-16 20:40 | PDOC.LDPN ---
Addendum entered and electronically signed by Agustina Vickers MD 03/16/18 22:15: Correction: SVE 50/-2 Original Note: Labor & Delivery Progress Note - Subjective Subjective: painful contractions - Objective Vital signs reviewed and normal: yes General: breathing through contractions Uterine fundus: non tender Dilation: 5 Effacement: 50% Station: -3 FHT: category 1 (140/mod/no accel/no decel) [place] contractions every: 4 - Assessment (1) Intrauterine Code(s): Z34.90 - ENCNTR FOR SUPRVSN OF NORMAL , UNSP, UNSP TRIMESTER Current Visit: No Status: Acute Plan: continue plan of care -: 22 yo at 39.4w here with contractions in latent labor 1. Latent labor - /-1, making cervical change - Will continue to monitor and plan to admit if continuing to make change MD [place], PGY-3 <Agustina Vickers - Last Filed: 03/16/18 20:40> Attending Addendum - Attending Addendum Date/Time: 03/16/18 2221 I personally evaluated the patient and discussed the management with Dr. Vickers. I agree with the History, Examination, Assessment and Plan documented above with any addition or exceptions noted below. <Raymond Nichole - Last Filed: 03/16/18 22:22>
[2018-03-16] MEDS ORDERED: Ondansetron PF 4 MG/2 ML Vial IVP PRN (21:13)
[2018-03-16] MEDS ORDERED: Promethazine HCl 25 MG/ML VIAL IM PRN (21:13)
[2018-03-16] MEDS ORDERED: Lidocaine 1% (PF) 30 ML VIAL SC PRN (21:13)
[2018-03-16] MEDS ORDERED: NS / Oxytocin 40 units/1000ml 1,000 ML IV PRN (21:13)
[2018-03-16] MEDS ORDERED: Lactated Ringer's 1,000 ML IV SCH (21:15)
[2018-03-16] MEDS ORDERED: NS w/ Oxytocin 10 units 500 ML IV SCH ×2 (21:15)
--- NOTE | 2018-03-16 22:15 | PDOC.LDPN ---
Labor & Delivery Progress Note - Subjective Subjective: painful contractions - Objective Vital signs reviewed and normal: yes General: resting, breathing through contractions Uterine fundus: non tender Dilation: 5.5 Effacement: 50% Station: -2 FHT: category 1 [place] contractions every: 4 - Assessment (1) Intrauterine Code(s): Z34.90 - ENCNTR FOR SUPRVSN OF NORMAL , UNSP, UNSP TRIMESTER Current Visit: No Status: Acute Plan: continue plan of care -: 22 yo at 39.4w here with contractions in latent labor 1. Latent labor - 5.5/60/-2, making cervical change - Will admit for expectant management - Epidural when desired MD Germania, PGY-3 <Agustina Vickers - Last Filed: 03/16/18 22:13> Attending Addendum - Attending Addendum Date/Time: 03/16/18 2221 I personally evaluated the patient and discussed the management with Dr. Vickers I agree with the History, Examination, Assessment and Plan documented above with any addition or exceptions noted below. <Raymond Nichole - Last Filed: 03/16/18 22:21>
[2018-03-16] MEDS: Lactated Ringer's 1,000 ML IV SCH (22:40)
[2018-03-16] MEDS ORDERED: Fentanyl 4 mcg/Bup 0.1% Cadd 0 ML ONE (22:46)
[2018-03-16 23:05] LABS: Hemoglobin 7.6 g/dL (12.0-16.0); Mean Corpuscular HGB CONC 30.6 g/dL (32.0-36.0); Mean Corpuscular Hemoglobin 20.3 pg (27.0-31.0); Mean Corpuscular Volume 66.3 fL (78.0-98.0); Mean Platelet Volume 7.4 fL (7.4-10.4); Platelet Count 206 thou/uL (130-400); Red Blood Cell (RBC) Count 3.76 mill/uL (4.20-5.40); White Blood Cell (WBC) Count 8.5 thou/uL (4.8-10.8)
[2018-03-16 23:44] LABS: Syphilis Antibody Nonreactive (Nonreactive); Syphilis Antibody Index 0.07 S/CO (<1.00 Non-Reactive)
[2018-03-16 23:50] LABS: HBSAg Index 0.23 S/CO (0-0.99); HIV (1/2) Antibody/Antigen Non-Reactive (NonReactive); HIV 1/2 INDEX 0.11 S/CO (<1.00); Hep B Surf Ag Non-Reactive S/CO (NonReactive)
--- NOTE | 2018-03-17 00:13 | PDOC.LDPN ---
Labor & Delivery Progress Note - Subjective Subjective: comfortable - Objective Vital signs reviewed and normal: yes General: resting Uterine fundus: non tender Dilation: 6 Effacement: 50% (60) Station: -2 FHT: category 1 [place] contractions every: 5-10 - Assessment (1) Intrauterine Code(s): Z34.90 - ENCNTR FOR SUPRVSN OF NORMAL , UNSP, UNSP TRIMESTER Current Visit: No Status: Acute (2) Active labor at term Code(s): PSQ6561 - Current Visit: No Status: Acute Comment: -Continue expectant management -Labor down to allow for complete cervical dilation; currently anterior lip/100/ +1 at 1330 -Cat I strip -Alerting Dr. Ford to change in dilation. (3) Anemia affecting Code(s): O99.019 - ANEMIA COMPLICATING , UNSPECIFIED TRIMESTER Current Visit: No Status: Acute Comment: -s/p iron infusion x2 Plan: continue plan of care -: 22 yo at 39.4w here with contractions in active labor 1. Active labor - 60/-2, making cervical change - Continue expectant management, will start pitocin at next check if no further change - Epidural when desired 2. GBS negative 3. Anemia - Hgb 7.6 - Active management of 3rd stage - Uterotonics at bedside MD Germania, PGY-3
[2018-03-17] MEDS ORDERED: Fentanyl 4 mcg/Bup 0.1% Cadd 100 ML ONE (01:37)
[2018-03-17] MEDS ORDERED: Acetaminophen 325 MG TAB PO PRN (02:20)
[2018-03-17] MEDS ORDERED: ePHEDrine/0.9% NaCl/PF SYRINGE 50 mg/10 ml SLOW IVP PRN (02:20)
[2018-03-17] MEDS ORDERED: Lactated Ringer's 500 ML IV PRN (02:20)
[2018-03-17] MEDS ORDERED: Promethazine HCl 25 MG/ML VIAL IM PRN (02:20)
[2018-03-17] MEDS: Lactated Ringer's 1,000 ML IV SCH (02:20)
[2018-03-17] MEDS ORDERED: Naloxone HCl 0.4 mg/ml Vial IVP PRN ×2 (02:20)
[2018-03-17] MEDS ORDERED: diphenhydrAMINE 50 MG/ML VIAL IVP PRN (02:20)
[2018-03-17] MEDS ORDERED: Eucerin (Mineral Oil/Petrolatum,White) 30 gm Jar TOP PRN (02:20)
[2018-03-17] MEDS ORDERED: Ondansetron PF 4 MG/2 ML Vial IVP PRN (02:20)
[2018-03-17] MEDS ORDERED: Fentanyl 4 mcg/Bupivacaine 0.1% Cassette 100 ML EPIDURAL SCH (02:30)
[2018-03-17] MEDS ORDERED: Communication Order-Pharmacy FS SCH (02:30)
--- NOTE | 2018-03-17 03:18 | PDOC.LDPN ---
Labor & Delivery Progress Note - Subjective Subjective: comfortable, painful contractions - Objective Vital signs reviewed and normal: yes General: resting, breathing through contractions Uterine fundus: non tender Dilation: 6 Effacement: 50% (60) Station: -2 FHT: category 1 [place] contractions every: 3-6 min - Assessment (1) Intrauterine Code(s): Z34.90 - ENCNTR FOR SUPRVSN OF NORMAL , UNSP, UNSP TRIMESTER Current Visit: No Status: Acute (2) Anemia affecting Code(s): O99.019 - ANEMIA COMPLICATING , UNSPECIFIED TRIMESTER Current Visit: No Status: Acute Comment: -s/p iron infusion x2 Plan: continue plan of care -: 22 yo at 39.4w here with contractions in active labor 1. Active labor - /-2, no change since last check - Epidural when desired - Will start pitocin 2. GBS negative 3. Anemia - Hgb 7.6 - Active management of 3rd stage - Uterotonics at bedside MD Germania, PGY-3
--- NOTE | 2018-03-17 04:14 | PDOC.LDPN ---
Labor & Delivery Progress Note - Subjective Subjective: comfortable, vaginal pressure - Objective Vital signs reviewed and normal: yes General: resting Uterine fundus: non tender Dilation: 8 Effacement: 75% (80) Station: -1 FHT: category 2 - Assessment (1) Intrauterine Code(s): Z34.90 - ENCNTR FOR SUPRVSN OF NORMAL , UNSP, UNSP TRIMESTER Current Visit: No Status: Acute (2) Active labor at term Code(s): [id number] - Current Visit: No Status: Acute (3) Anemia affecting Code(s): O99.019 - ANEMIA COMPLICATING , UNSPECIFIED TRIMESTER Current Visit: No Status: Acute Plan: continue plan of care, pitocin for augmentation -: 22 yo at 39.4w here with contractions in active labor 1. Active labor - SROM at approx 0300 - 7/80/-1 at 0400 - Comfortable with epidural but feeling some vaginal pressure 2. GBS negative 3. Anemia - Hgb 7.6 - Active management of 3rd stage - Uterotonics at bedside MD Germania, PGY-3 <Agustina Vickers - Last Filed: 03/17/18 04:12> Attending Addendum - Attending Addendum Date/Time: 03/17/18 0851 I personally evaluated the patient and discussed the management with Dr. Vickers. I agree with the History, Examination, Assessment and Plan documented above with any addition or exceptions noted below. <Raymond Nichole - Last Filed: 03/17/18 08:51>
--- NOTE | 2018-03-17 06:29 | PDOC.OPDEL ---
OB Operative/Delivery Note Delivery Dr/Surgeon: Dr. Kimberlyn Ford Assist: Dr. Milly Sol and Dr. Agustina Vickers Pre-Delivery Diagnosis: active labor Procedure/Post Delivery Dx: spontaneous vaginal delivery Weeks gestation: 39 (39.5) Anesthesia: epidural - Additional Findings/Plan Placenta delivered: spontaneous Repaired Obstetrical Laceration: none Estimated blood loss: 379 mL Compilations/Other Findings: none Post delivery plan: routine recovery <Milly Sol - Last Filed: 03/17/18 06:30> Attending Addendum - Attending Addendum Date/Time: 03/17/18 1054 I was present, assisted, and supervised the of a viable female over an intact perineum. Apgars 8/9. Placenta delivered spontaneously and intact. 3V cord. No epis or lacerations. QBL 379 mL. Residents: [place]. <Kimberlyn Ford - Last Filed: 03/17/18 10:58>
[2018-03-17] MEDS ORDERED: Ibuprofen 800 MG TAB PO SCH (07:45)
[2018-03-17] MEDS ORDERED: Bisacodyl 10 MG SUPP PR PRN (09:44)
[2018-03-17] MEDS ORDERED: Benzocaine/Menthol 20-0.5% 60 ML CAN TOP PRN (09:44)
[2018-03-17] MEDS ORDERED: Adacel (T-DAP) 0.5 ML VIAL IM ONE (09:44)
[2018-03-17] MEDS ORDERED: Docusate Calcium (SURFAK) 240 MG CAP PO SCH (10:15)
[2018-03-17] MEDS ORDERED: Prenatal Vitamin 1 TAB PO SCH (10:15)
[2018-03-17] MEDS ORDERED: Ferrous Sulfate 325 MG TAB PO SCH (10:15)
[2018-03-17] MEDS ORDERED: Bupivacaine/Epinephrine 0.25% 30 ML VIAL ONE (11:11)
[2018-03-17] MEDS: Ibuprofen 800 MG TAB PO SCH ×2 (13:47→21:21)
[2018-03-17] MEDS: Ferrous Sulfate 325 MG TAB PO SCH (16:06)
[2018-03-17] MEDS ORDERED: traMADol HCl 50 MG TAB PO PRN ×2 (16:48→16:55)
[2018-03-17] MEDS: Docusate Calcium (SURFAK) 240 MG CAP PO SCH (21:23)
[2018-03-18] MEDS: Ibuprofen 800 MG TAB PO SCH ×3 (05:36→15:24)
[2018-03-18 06:33] LABS: Hemoglobin 6.1 g/dL (12.0-16.0); Mean Corpuscular HGB CONC 30.6 g/dL (32.0-36.0); Mean Corpuscular Hemoglobin 20.3 pg (27.0-31.0); Mean Corpuscular Volume 66.5 fL (78.0-98.0); Mean Platelet Volume 11.8 fL (7.4-10.4); Platelet Count 183 thou/uL (130-400); RBC Distribution Width 19.9 % (11.5-14.5); Red Blood Cell (RBC) Count 2.97 mill/uL (4.20-5.40); White Blood Cell (WBC) Count 12.8 thou/uL (4.8-10.8)
--- NOTE | 2018-03-18 06:54 | PDOC.PP ---
Post Progress Note Post Day #: 1 Subjective: Ms. Heck is resting comfortably in bed, she denies any SOB, Dizziness, or fatigue. PO intake tolerated: yes Flatus: yes Ambulation: yes Vital Signs (12 hours) Temp Pulse Resp BP Pulse Ox 03/18/18 04:00 98.3 F 90 18 107/66 97 03/17/18 23:32 98.4 F 100 20 102/51 L 97 03/17/18 20:00 98.5 F 94 20 122/64 98 Weight Weight 79.379 kg - Physical Examination General: NAD Cardiovascular: no m/r/g Respiratory: clear to auscultation bilaterally Abdominal: appropriately TTP Neurological: no gross focal deficits Result Diagrams: 03/18/18 06:04 Additional Labs: Post Labs Blood Type O POSITIVE 03/16/18 22:40 Hep Bs Antigen Non-Reactive S/CO (NonReactive) 03/16/18 22:40 (1) (normal spontaneous vaginal delivery) Code(s): O80 - ENCOUNTER FOR FULL-TERM UNCOMPLICATED DELIVERY Status: Acute Comment: -G4 now P2 at 39.5 wks that delivered via at 0548 on 03/17/18. -Routine care, no lacerations -VSS -possible discharge home with follow up at [facility] within 6 weeks for routine care. (2) Anemia affecting Code(s): O99.019 - ANEMIA COMPLICATING , UNSPECIFIED TRIMESTER Status : Acute Comment: - Hb 6.1 today, asymptomatic, VSS - monitor closely <Tay Borden - Last Filed: 03/18/18 08:39> Vital Signs (12 hours) Temp Pulse Resp BP Pulse Ox 03/18/18 08:13 99.2 F 95 20 107/62 95 03/18/18 04:00 98.3 F 90 18 107/66 97 03/17/18 23:32 98.4 F 100 20 102/51 L 97 Weight Weight 79.379 kg Result Diagrams: 03/18/18 06:04 Additional Labs: Post Labs Blood Type O POSITIVE 03/16/18 22:40 Hep Bs Antigen Non-Reactive S/CO (NonReactive) 03/16/18 22:40 <Kimberlyn Ford - Last Filed: 03/18/18 10:24> Attending Addendum - Attending Addendum Date/Time: 03/18/18 1022 I personally evaluated the patient and discussed the management with Dr. Borden I agree with the History, Examination, Assessment and Plan documented above with any addition or exceptions noted below- Patient without complaints. Afebrile VSS. A/P: 1) PPD#1 s/p - continue routine NB care. 2) Anemia- iron deficiency- patient asymptomatic; continue to monitor and continue iron BID <Kimberlyn Ford - Last Filed: 03/18/18 10:24>
--- NOTE | 2018-03-18 07:56 | DN ---
DATE OF PROCEDURE: 03/17/2018 DELIVERING PHYSICIAN: Dr. Milly Sol. PROCEDURE PERFORMED: Spontaneous vaginal delivery. ANESTHESIA: Epidural. QUANTITATIVE BLOOD LOSS: 379 mL. PREOPERATIVE DIAGNOSES: 1. Term intrauterine in labor. 2. Obesity. 3. Anemia in . POSTOPERATIVE DIAGNOSES: 1. Term intrauterine , delivered. 2. Obesity. 3. Anemia in . INDICATIONS: A 22-year-old female, G4, P1-0-2-1, presents to L and D in latent labor. DELIVERY NOTE: This is a 22-year-old female, G4, P1-0-2-1 at 39 and 5 weeks, who delivered a viable female infant at 0548. Following an uneventful intrapartum course, a vigorous female infant was delivered over an intact perineum in the occiput anterior position. Anterior shoulder and then remainder of the body delivered. No nuchal cord. The head was held down and mouth and nares were bulb suctioned. Cord was clamped and cut and cord blood collected. Placenta delivered intact with a 3-vessel cord noted. Fundal massage was performed and fundus was firm. The cervix and vagina were inspected and found to be free of lacerations. Infant went to nursery in good condition with routine care. Apgars are 8 and 9 at one and five minutes, respectively. The patient tolerated the delivery well and went to after routine recovery/care. Job ID: [id number] [facility]
[2018-03-18] MEDS: Ferrous Sulfate 325 MG TAB PO SCH ×2 (09:00→16:18)
[2018-03-18] MEDS: Docusate Calcium (SURFAK) 240 MG CAP PO SCH (09:00)
[2018-03-18] MEDS ORDERED: Prenatal Vitamin 1 TAB PO SCH (09:00)
[2018-03-18 16:06] LABS: Hemoglobin 6.2 g/dL (12.0-16.0); Mean Corpuscular Hemoglobin 20.4 pg (27.0-31.0); Mean Corpuscular Volume 65.9 fL (78.0-98.0); Mean Platelet Volume 7.8 fL (7.4-10.4); Platelet Count 177 thou/uL (130-400); RBC Distribution Width 19.8 % (11.5-14.5); Red Blood Cell (RBC) Count 3.03 mill/uL (4.20-5.40); White Blood Cell (WBC) Count 12.6 thou/uL (4.8-10.8)
[2018-03-18 16:53] VITALS: BP 117/61; TEMP 98.7
== END 2018-03-18 17:07 | disposition home or self-care (01) | DRG 807 ==
LOC: L&D/OP 17:59 → L&D 03-17 05:35 → 3SE 03-17 09:43
PROVIDERS: ADMIT Family Medicine; ATTEND Family Medicine
PROC: 10E0XZZ Delivery of Products of Conception, External Approach (ICD-10-PCS; principal; 2018-03-17)
DX: O99.52 Diseases of the respiratory system complicating childbirth (principal); Z37.0 Single live birth; O99.02 Anemia complicating childbirth; Z3A.39 39 weeks gestation of pregnancy; O99.214 Obesity complicating childbirth; D50.9 Iron deficiency anemia, unspecified; J45.909 Unspecified asthma, uncomplicated; Z68.29 Body mass index [BMI] 29.0-29.9, adult
CPT/HCPCS: 36415; 36416; 51702; 85027; 86780; 86850; 86900; 86901; 87340; 87389; 99285

== ENCOUNTER 2018-03-19 21:02 | Inpatient (IN) | payer OTHER ==
[2018-03-19] MEDS ORDERED: Fentanyl 100 MCG/2 ML VIAL ONE (21:21)
[2018-03-19] MEDS ORDERED: prednisoLONE Sod Phosphate 10 MG ODT TAB ONE (21:22)
[2018-03-19] MEDS ORDERED: Ondansetron PF 4 MG/2 ML Vial ONE (21:22)
[2018-03-19 21:44] LABS: #Eosinphils 0.4 thou/uL (0.0-0.7); #Lymphocytes 2.9 thou/uL (1.20-3.40); #Monocytes 0.6 thou/uL (0.11-0.59); #Neutrophils 12.9 thou/uL (1.40-6.50); %Basophils 0.1 % (0.0-1.0); %Eosinophils 2.2 % (0.0-10.0); %Lymphocytes 17.3 % (21.0-51.0); %Monocytes 3.5 % (0.0-10.0); %Neutrophils 76.9 % (42.0-75.0); Mean Corpuscular HGB CONC 31.6 g/dL (32.0-36.0); Mean Corpuscular Hemoglobin 20.9 pg (27.0-31.0); Mean Corpuscular Volume 66.1 fL (78.0-98.0); Mean Platelet Volume 6.7 fL (7.4-10.4); Platelet Count 255 thou/uL (130-400); RBC Distribution Width 20.5 % (11.5-14.5); Red Blood Cell (RBC) Count 3.36 mill/uL (4.20-5.40); White Blood Cell (WBC) Count 16.8 thou/uL (4.8-10.8)
[2018-03-19] MEDS ORDERED: NS / Oxytocin 40 units/1000ml 1,000 ML IV SCH (21:45)
[2018-03-19] MEDS ORDERED: Ampicillin/Sulbactam 3 GM in Sodium Chloride 0.9% 100 ML IVPB SCH (21:45)
[2018-03-19 21:46] LABS: ALT (SGPT) 15 U/L (8-55); AST (SGOT) 48 U/L (5-34); Albumin 2.9 g/dL (3.5-5.0); Alkaline Phosphatase 209 U/L (40-150); Anion Gap 13 mmol/L (10-20); BUN (Urea Nitrogen) 11 mg/dL (7.0-18.7); Bilirubin, Total 0.4 mg/dL (0.2-1.2); Calc. Creatinine Clearance 0 mL/min (70-130); Calcium 8.3 mg/dL (7.8-10.44); Carbon Dioxide 20 mmol/L (22-29); Chloride 109 mmol/L (98-107); Estimated GFR-MDRD Greater than 90; Globulin 3.6 g/dL (2.4-3.5); Glucose 81 mg/dL (70-105); Protein, Total 6.5 g/dL (6.0-8.3); Sodium 138 mmol/L (136-145)
[2018-03-19] MEDS ORDERED: Acetaminophen 325 MG TAB PO PRN (22:20)
[2018-03-19] MEDS ORDERED: HYDROcodone/Acetaminophen 5/325 mg Tablet PO PRN ×2 (22:20)
--- NOTE | 2018-03-19 22:32 | ULT ---
PELVIC ULTRASOUND: 03/19/18 COMPARISON: None. HISTORY: Heavy vaginal bleeding and abdominal pain. Patient is two days . TECHNIQUE: Multiplanar nunez scale and color doppler images are obtained in a transabdominal pelvic ultrasound. FINDINGS: The uterus is enlarged consistent with patient's recent state. The endometrial stripe appe ars thickened and increased flow is seen within this thickened endometrial stripe. This could potenti ally represent retained products of conception. No uterine mass is appreciated. No free fluid is seen in the pelvis. Both ovaries are normal in size and appearance and demonstrates normal internal flow. IMPRESSION: Thickened endometrial stripe with the appearance of increased flow could represent retained products of conception. POS: [facility]
--- NOTE | 2018-03-19 22:49 | PDOC.FPROB ---
FMR OB H&P: HPI - History of Present Illness Chief Complaint: vaginal bleed and abdominal pain History of Present Illness: 22 yo s/p at ~ 39 wks on 03/17/18 presents with vaginal bleeding that started this morning. She went to [employer] with her mom and after that noticed bleeding and clots the size of a quarter. She has been using two pads an hour for the past 4 hours. She also endorses lower abdominal pain that started this morning as well. She endorses chills at home as well but did not take her temperature. She denies n/v. Her delivery was uncomplicated. FMR OB H&P: Current - Care : 4 Para: 2021 Course/Complications: no complications - OB Labs Blood type: O RH: positive Antibody Screen: negative HIV: negative RPR: negative HepBsAg: negative Rubella: immune Gonorrhea: negative Chlamydia: negative Pap Smear: LSIL with HRHPV + 1 hour gtt: 133 FMR OB H&P: History - Past Medical History PMH: none - OB History OB History: 2016 female 03/17/18 female - LCPC History LCPC History: LSIL with HRHPV - Surgical History Sx History: cholecystectomy - Social History Social History: denies smoking, alcohol, drug use - Family History Family History: denies FMR OB H&P: Medications - Current Home Medications: Medication Instructions Recorded Confirmed Type hydrOXYzine HCl [Hydroxyzine HCl] 25 mg PO Q6HR PRN #30 tablet 03/13/18 Rx Acetaminophen [Tylenol Extra 500 mg PO NOW tab 03/14/18 03/16/18 Rx Strength] Docusate Calcium [Surfak] 240 mg PO BID #60 cap 03/18/18 Rx Ferrous Sulfate [Feosol] 325 mg PO BID-WM #60 tab 03/18/18 Rx Ibuprofen [Motrin] 800 mg PO Q8HR #21 tab 03/18/18 Rx Vit,Calc76/Iron/Folic 1 tablet PO DAILY #30 tablet 03/18/18 Rx [Pnv 29-1 Tablet] Allergies/Adverse Reactions: Allergies Allergy/AdvReac Type Severity Reaction Status Date / Time No Known Drug Allergies Allergy Verified 03/16/18 18:44 FMR OB H&P: ROS - Review of Systems General: reports: fever/chills. denies: weight/appetite/sleep changes, night sweats ENT: denies: nasal congestion, rhinorrhea Cardiovascular: denies: chest pain, palpitation Gastrointestinal: reports: abdominal pain, cramping. denies: indigestion, bloating, nausea, vomiting, diarrhea, constipation Genitourinary (Female): reports: vaginal bleeding. denies: incontinence, dysuria Musculoskeletal: denies: pain, stiffness Neurologic: denies: numbness, syncope Integumentary: denies: itching, rash Breast: denies: lumps, bumps Endocrine: denies: cold intolerance, heat intolerance Psychological: denies: depression, anxiety FMR OB H&P: Vital Signs - Maternal Vital signs: HR 125 BP 119/96 T: 100 FMR OB H&P: Physical Exam - Physical Exam General: NAD, awake, alert and oriented HEENT: normocephalic and atraumatic, PERRLA, EOMI, MMM Neck: supple, trachea midline, no LAD Heart: RRR, normal S1/S2, no murmurs/rubs/gallops, no edema General: CTAB, no respiratory distress, no rales/rhonchi, no wheezing, no retractions Abdomen: soft, other (tender to palpation lower abdomen; uterus 2-3cm below umbilicus) Psychiatric: intact recent and remote memory, good judgement and insight, normal mood and affect - Pelvic Exam Vulva: no masses, no lesions Cervix: no masses, no lesions Deviation from normal: blood present, no clots FMR OB H&P: Results - Labs Lab results: Laboratory Results - last 24 hr 03/19/18 03/19/18 03/19/18 21:21 21:21 21:21 WBC 16.8 H RBC 3.36 L Hgb 7.0 L Hct 22.2 L MCV 66.1 L MCH 20.9 L MCHC 31.6 L RDW 20.5 H Plt Count 255 MPV 6.7 L Neutrophils % 76.9 H Neutrophils % (Manual) Not Reportable Lymphocytes % 17.3 L Monocytes % 3.5 Eosinophils % 2.2 Basophils % 0.1 Neutrophils # 12.9 H Lymphocytes # 2.9 Monocytes # 0.6 H Eosinophils # 0.4 Basophils # 0.0 Sodium 138 Potassium 4.0 Chloride 109 H Carbon Dioxide 20 L Anion Gap 13 BUN 11 Creatinine 0.65 Estimated GFR (MDRD) Greater than 90 Glucose 81 Calcium 8.3 Total Bilirubin 0.4 AST 48 H ALT 15 Alkaline Phosphatase 209 H Serum Total Protein 6.5 Albumin 2.9 L Globulin 3.6 H Albumin/Globulin Ratio 0.8 L Blood Type O POSITIVE Antibody Screen NEGATIVE Crossmatch See Detail FMR OB H&P: A/P - Problem List (1) Endometritis Current Visit: Yes Status: Acute Code(s): N71.9 - INFLAMMATORY DISEASE OF UTERUS, UNSPECIFIED (2) Vaginal bleeding Current Visit: Yes Status: Acute Code(s): N93.9 - ABNORMAL UTERINE AND VAGINAL BLEEDING, UNSPECIFIED (3) (normal spontaneous vaginal delivery) Current Visit: No Status: Acute Code(s): O80 - ENCOUNTER FOR FULL-TERM UNCOMPLICATED DELIVERY Comment: -G4 now P2 at 39.5 wks that delivered via at 0548 on 03/17/18. -Routine care, no lacerations -VSS -possible discharge home with follow up at [facility] within 6 weeks for routine care. (4) Anemia Current Visit: Yes Status: Acute Code(s): D64.9 - ANEMIA, UNSPECIFIED Qualifiers: Anemia type: iron deficiency Disposition: 22 yo s/p on 03/17/18 presents with abdominal pain, vaginal bleeding admitted for endometritis. #Endometritis- -pt with a leukocytosis and abdominal pain, admitted to inpatient post and started on clindamicin, rocephin, fluids, and pain meds for pain control -will also give 1 unit of prbcs for hb of 7. For her bleeding, an US was completed with report pending, but pitocin given in the ER, and we additionally started the pt on TXA and cytotec. We will monitor her overnight and see if the bleeding stops. We will recheck a cbc 4 hours after the unit of blood is given. -The bleeding could be due to the endometritis vs retained tissue. We will stabilize the pt, monitor overnight, and reevaluate after giving the TXA, cytotec, and unit of blood. #Vaginal Bleeding- -2/2 endometritis vs retained tissue. US completed, report pending. Will give TXA, cytotec, and one unit of blood. Reevaluate for a D&C in the am. #Anemia- -given one unit prbcs, will repeat cbc in am #S/p on 03/17/18 -see above Discussion: Date/Time: 03/19/18 2293 This H&P was discussed with [] and [] who agree with the above documentation and plan.
[2018-03-19] MEDS ORDERED: Tranexamic Acid 1,000 MG in Sodium Chloride 0.9% 100 ML IVPB SCH (23:00)
[2018-03-19] MEDS ORDERED: Tranexamic Acid 1,000 MG in Sodium Chloride 0.9% 250 ML 250 ML IVPB SCH (23:00)
[2018-03-19] MEDS ORDERED: Misoprostol 200 MCG TAB PO SCH (23:00)
[2018-03-20] MEDS: Clindamycin/D5W 900 MG in Premix Bag 1 BAG IVPB SCH ×3 (02:16→18:19)
[2018-03-20] MEDS: Sodium Chloride 0.9% 1,000 ML IV SCH ×3 (02:16→18:19)
[2018-03-20] MEDS: cefTRIAXone\\ROCEPHIN 1 GM in Sodium Chloride 0.9% 100 ML IVPB SCH (03:20)
[2018-03-20] MEDS: Misoprostol 200 MCG TAB PO SCH ×3 (05:39→14:23)
--- NOTE | 2018-03-20 06:22 | PDOC.FM ---
- Subjective Subjective: Pt states bleeding stopped this morning. She says she feels better and was sleeping comfortably. States pain is improved. - Objective MAR Reviewed: Yes Vital Signs & Weight: Vital Signs (12 hours) Temp Pulse Pulse Resp BP BP BP 03/20/18 05:33 98.9 F 03/20/18 03:20 99.9 F H 103 H 24 H 116/65 03/20/18 02:00 99.6 F 110 H 24 H 119/76 03/20/18 00:15 98.6 F 83 20 124/76 03/20/18 00:05 99.8 F H 87 20 03/19/18 23:59 99.8 F H 87 20 138/80 BP Pulse Ox 03/20/18 05:33 03/20/18 03:20 03/20/18 02:00 99 03/20/18 00:15 03/20/18 00:05 138/80 98 03/19/18 23:59 I&O: 03/18/18 03/19/18 03/20/18 06:59 06:59 06:59 Intake Total 1430 Output Total 700 Balance 730 Result Diagrams: 03/19/18 21:21 03/19/18 21:21 Phys Exam - Physical Examination Constitutional: NAD Respiratory: no wheezing, no rales, clear to auscultation bilateral Cardiovascular: RRR, no significant murmur Gastrointestinal: soft, non-tender, no distention Neurological: non-focal, normal sensation Psychiatric: normal affect, A&O x 3 Skin: no rash, normal turgor, cap refill <2 seconds Dx/Plan (1) Endometritis Code(s): N71.9 - INFLAMMATORY DISEASE OF UTERUS, UNSPECIFIED Status: Acute (2) Vaginal bleeding Code(s): N93.9 - ABNORMAL UTERINE AND VAGINAL BLEEDING, UNSPECIFIED Status: Acute (3) (normal spontaneous vaginal delivery) Code(s): O80 - ENCOUNTER FOR FULL-TERM UNCOMPLICATED DELIVERY Status: Acute (4) Anemia Code(s): D64.9 - ANEMIA, UNSPECIFIED Status: Acute Qualifiers: Anemia type: iron deficiency - Plan Plan: 22 yo s/p on 03/17/18 presents with abdominal pain, vaginal bleeding admitted for endometritis. #Endometritis- -continue clindamicin and rocephin -cbc pending this morning -continue ibuprofen and norco prn pain #Vaginal Bleeding- -2/2 endometritis vs retained tissue. Resolved with TXA, cytotec. S/p one unit prbcs. CBC pending this am. #Anemia- -given one unit prbcs, cbc pending #S/p on 03/17/18
[2018-03-20 07:31] LABS: Anion Gap 12 mmol/L (10-20); BUN (Urea Nitrogen) 6 mg/dL (7.0-18.7); Calc. Creatinine Clearance 0 mL/min (70-130); Calcium 7.7 mg/dL (7.8-10.44); Carbon Dioxide 19 mmol/L (22-29); Chloride 111 mmol/L (98-107); Estimated GFR-MDRD Greater than 90; Glucose 82 mg/dL (70-105); Sodium 138 mmol/L (136-145)
[2018-03-20 07:53] LABS: Hemoglobin 7.3 g/dL (12.0-16.0); Mean Corpuscular HGB CONC 31.6 g/dL (32.0-36.0); Mean Corpuscular Hemoglobin 21.5 pg (27.0-31.0); Mean Corpuscular Volume 68.2 fL (78.0-98.0); Mean Platelet Volume 6.8 fL (7.4-10.4); Platelet Count 212 thou/uL (130-400); RBC Distribution Width 22.3 % (11.5-14.5); Red Blood Cell (RBC) Count 3.38 mill/uL (4.20-5.40); White Blood Cell (WBC) Count 13.9 thou/uL (4.8-10.8)
[2018-03-20 08:10] LABS: Band 3 % (5-11); Hypochromia SLIGHT = 6-15 cells (100X) (0-5/hpf); Large Platelets SLIGHT; Lymphocytes 14 % (21-51); MDiff Complete? YES; Macrocytosis SLIGHT = 6-15 cells (100X) (0-5/hpf); Microcytosis SLIGHT = 6-15 cells (100X) (0-5/hpf); Monocytes 6 % (0-10); Neutrophil 74 % (42-75); Nucleated RBC 1 % (0); PLT Morphology Comment Appears Adequate; Polychromasia SLIGHT = 2-3 cells (100X) (0-2/hpf); Reactive Lymphocytes 3 % (0-10)
[2018-03-20 21:13] LABS: Chlamydia by PCR Not Detected (NotDetected); GC by PCR Not Detected (NotDetected)
[2018-03-21] MEDS: Sodium Chloride 0.9% 1,000 ML IV SCH ×2 (01:30→05:33)
[2018-03-21] MEDS: Clindamycin/D5W 900 MG in Premix Bag 1 BAG IVPB SCH ×2 (02:15→09:57)
[2018-03-21] MEDS: cefTRIAXone\\ROCEPHIN 1 GM in Sodium Chloride 0.9% 100 ML IVPB SCH (03:46)
[2018-03-21 08:23] VITALS: BP 122/69; TEMP 98.6
--- NOTE | 2018-03-21 12:30 | DIS ---
DATE OF ADMISSION: 03/19/2018 DATE OF DISCHARGE: 03/21/2018 ADMITTING DIAGNOSES: 1. endomyometritis. 2. Vaginal bleeding with symptomatic anemia. DISCHARGE DIAGNOSES: 1. endomyometritis. 2. Vaginal bleeding with symptomatic anemia. PROCEDURES PERFORMED: Blood transfusion and antibiotic administration. CONSULTATION: None. HOSPITAL COURSE: The patient is a 22-year-old female, who was day 3 on day of re-presentation for an uncomplicated term spontaneous vaginal delivery. She reported heavy vaginal bleeding and was diagnosed after physical exam and evaluation with endomyometritis. During her stay, the patient has received Rocephin and clindamycin. She has also received 1 unit of packed red blood cells and on TXA and Cytotec to resolve her vaginal bleeding. Her hospital course has been uncomplicated. She is now hospital day 3, is feeling much better than when she first presented. The patient denies any pain and minimal bleeding. PHYSICAL EXAMINATION: VITAL SIGNS: This morning, blood pressure 106/55, temperature 98.5, pulse is 77 , and respiratory rate is 16. GENERAL: She appears to be in no acute distress. She is alert, oriented, cooperative, and pleasant to interact with. : Fundus is firm at the umbilicus and nontender. EXTREMITIES: Nontender with SCDs in place. The patient will be discharged later this morning after receiving her midday dose of clindamycin. She has received her Rocephin earlier in the day. She has instructions to follow up with her primary OB in 1 week and to seek medical attention should she experience fever, increasing pain, or bleeding. The patient will be discharged to home. Job ID: [id number] [facility]
== END 2018-03-21 11:28 | disposition home or self-care (01) | DRG 776 ==
LOC: ERS 21:02 → 3SW 22:17
PROVIDERS: ADMIT Obstetrics & Gynecology; ATTEND Obstetrics & Gynecology
PROC: 30233N1 Transfusion of Nonautologous Red Blood Cells into Peripheral Vein, Percutaneous Approach (ICD-10-PCS; principal; 2018-03-20)
DX: O86.12 Endometritis following delivery (principal); N93.9 Abnormal uterine and vaginal bleeding, unspecified; D50.0 Iron deficiency anemia secondary to blood loss (chronic)
CPT/HCPCS: 36415; 36430; 76856; 80048; 80053; 85025; 86850; 86900; 86901; 87040; 87491; 87591; 96361; 96365; 96368; 96375; J0295; J0696; J2405; J3010; J3490; J7050; P9016

== ENCOUNTER 2018-10-19 16:18 | Emergency (ER) | payer OTHER ==
[2018-10-19] MEDS ORDERED: Acetaminophen 325 MG TAB ONE (16:57)
[2018-10-19] MEDS ORDERED: diphenhydrAMINE 25 MG CAP ONE (16:57)
== END 2018-10-19 17:03 | disposition home or self-care (01) ==
LOC: ERS 16:18
DX: S90.862A Insect bite (nonvenomous), left foot, initial encounter (principal); W57.XXXA Bitten or stung by nonvenomous insect and other nonvenomous arthropods, initial encounter
CPT/HCPCS: 99281; Q0163

== ENCOUNTER 2018-12-08 19:52 | Emergency (ER) | payer MEDICAID, SELFPAY ==
[2018-12-08 20:56] LABS: Bacteria/HPF 2+ HPF (None Seen); Bilirubin Negative (Negative); Blood, Urine Negative (Negative); Clarity Clear (Clear); Glucose, Urine (Dipstick) Normal (Negative); Leukocyte 25 Leu/uL (Negative); Mucous/LPF Rare LPF (<2+); Nitrite Negative (Negative); Protein, Urine (Dipstick) Negative (Neg-Trace); RBC/HPF 0-3 HPF (0-3); Squamous Epithelial 0-3 HPF (0-3); Urobilinogen Normal mg/dL (Less than 2); WBC/HPF 0-3 HPF (0-3)
[2018-12-08 20:57] LABS: Pregnancy Test - Urine (BHCG) POSITIVE (Negative); Pregu Control Background? CLEAR/WHITE (CLR/WHITE); Pregu Control Bar Appear? YES (CONTROL BAR); Specific Gravity 1.009 (1.002-1.036)
[2018-12-08] MEDS ORDERED: Cephalexin 250 MG CAP ONE (22:05)
== END 2018-12-08 23:04 | disposition home or self-care (01) ==
LOC: ERS 19:52
DX: O23.41 Unspecified infection of urinary tract in pregnancy, first trimester (principal); O99.511 Diseases of the respiratory system complicating pregnancy, first trimester; J45.909 Unspecified asthma, uncomplicated; O99.011 Anemia complicating pregnancy, first trimester
CPT/HCPCS: 81003; 81015; 81025

== ENCOUNTER 2019-01-07 20:56 | Day surgery (SDC) | payer OTHER ==
[2019-01-07 21:26] VITALS: BP 123/63; TEMP 98.9; BMI 29.0
[2019-01-07] MEDS ORDERED: hydrALAZINE 20 MG/ML VIAL SLOW IVP PRN (22:10)
--- NOTE | 2019-01-07 22:15 | PDOC.FPROB ---
FMR OB H&P: HPI - History of Present Illness Chief Complaint: Contractions Indentification: 23yo at unknown gestational age History of Present Illness: 23yo at unknown gestational age presents with contractions since 1930. Denies VB, LOF, abnormal discharge, dysuria. She reports going to the ED for UTI last week and finding out she was 5 or 6 months by bedside US. No formal US taken. Reports having a period every month, last one 1 month ago. Has not established care with a OB provider. Was planning to go to [place] tomorrow for a week to visit family and came in because she was concerned she maybe in labor. Primary Care Physician: No care FMR OB H&P: Current - Care : 5 Para: 2021 Gestational age: Unknown - OB Labs Blood type: unknown RH: unknown Antibody Screen: unknown HIV: unknown RPR: unknown HepBsAg: unknown Quad screen: unknown Gonorrhea: unknown Chlamydia: unknown GBS: unknown FMR OB H&P: History - Past Medical History PMH: Asthma, Hx of HPV positive - OB History OB History: 2 spontaneous abortions 2 vaginal deliveries 2017 03/17/2018: complicated by retained placenta and endometritis. 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 History: Hx of HPV - Surgical History Sx History: Cholecystectomy - Social History Social History: Denies alcohol, tobacco or drug use - Family History Family History: [place] grandmother- DM Cousin- Lupus Cousin- Down syndrome FMR OB H&P: Medications - Current Home Medications: Medication Instructions Recorded Confirmed Type No Known 01/07/19 01/07/19 History Allergies/Adverse Reactions: Allergies Allergy/AdvReac Type Severity Reaction Status Date / Time No Known Drug Allergies Allergy Verified 01/07/19 21:20 FMR OB H&P: ROS - Review of Systems General: denies: fever/chills, fatigue Eyes: denies: vision changes, double vision ENT: denies: nasal congestion, rhinorrhea Cardiovascular: denies: chest pain, palpitation Respiratory: denies: congestion, shortness of breath Gastrointestinal: denies: abdominal pain, nausea, vomiting Genitourinary (Female): reports: contractions. denies: dysuria, hematuria, vaginal discharge, vaginal bleeding, vaginal pressure Musculoskeletal: denies: pain, swelling Integumentary: denies: itching, rash FMR OB H&P: Vital Signs - Maternal Vital signs: Vital Signs - First Documented Temp Pulse Resp BP 98.9 F 112 H 18 123/63 01/07/19 21:16 01/07/19 21:16 01/07/19 21:16 01/07/19 21:16 - Heart Tones Baseline: 140 Variability: moderate Acceleration: absent Deceleration: absent Category: category 2 Oriental contractions every: rare FMR OB H&P: Physical Exam - Physical Exam General: NAD, awake, alert and oriented HEENT: normocephalic and atraumatic, MMM, conjunctiva clear, no scleral icterus , grossly normal hearing, oropharynx clear Neck: supple, trachea midline Heart: RRR, no murmurs/rubs/gallops General: CTAB, no respiratory distress, no wheezing Abdomen: soft, gravid, non-tender Musculoskeletal: pulses present, FROM in all four extremities, no misalignment/ asymmetry Neurological: no focal deficit Skin: no rash, good tugor, capillary refill <2 seconds Lymphatic: no unusual bruising or bleeding Psychiatric: intact recent and remote memory, good judgement and insight, normal mood and affect FMR OB H&P: A/P Disposition: 23yo at unknown gestational age with no dating - Will obtain dating US with biometry and cervical length - Ordered routine labs - Rare contractions on monitor Late to care - Will need to establish with OB continuity provider Discussion: Date/Time: 01/07/19 830 This H&P was discussed with Dr. Ortiz who saw the pt and agrees with the above documentation and plan. Addendum - Attending - Attending Attestation Date/Time: 01/08/19 2650 I personally evaluated the patient and discussed the management with Dr. Gimenez. I agree with the History, Examination, Assessment and Plan documented above.
[2019-01-07 22:50] LABS: Hemoglobin 9.1 g/dL (12.0-16.0); Mean Corpuscular HGB CONC 32.2 g/dL (32.0-36.0); Mean Corpuscular Hemoglobin 23.7 pg (27.0-31.0); Mean Corpuscular Volume 73.6 fL (78.0-98.0); Mean Platelet Volume 9.5 fL (7.4-10.4); Platelet Count 235 thou/uL (130-400); RBC Distribution Width 15.4 % (11.5-14.5); Red Blood Cell (RBC) Count 3.86 mill/uL (4.20-5.40); White Blood Cell (WBC) Count 10.1 thou/uL (4.8-10.8)
[2019-01-07 23:06] LABS: ALT (SGPT) 8 U/L (8-55); AST (SGOT) 20 U/L (5-34); Albumin 3.1 g/dL (3.5-5.0); Alkaline Phosphatase 93 U/L (40-150); Anion Gap 10 mmol/L (10-20); BUN (Urea Nitrogen) 5 mg/dL (7.0-18.7); Bilirubin, Total 0.3 mg/dL (0.2-1.2); Calc. Creatinine Clearance 196 mL/min (70-130); Calcium 8.5 mg/dL (7.8-10.44); Carbon Dioxide 21 mmol/L (22-29); Chloride 108 mmol/L (98-107); Estimated GFR-MDRD Greater than 90; Globulin 2.8 g/dL (2.4-3.5); Glucose 92 mg/dL (70-105); Potassium 3.6 mmol/L (3.5-5.1); Protein, Total 5.9 g/dL (6.0-8.3); Sodium 135 mmol/L (136-145)
[2019-01-07 23:25] LABS: Syphilis Antibody Nonreactive (Nonreactive); Syphilis Antibody Index 0.04 S/CO (<1.00 Non-Reactive)
[2019-01-07 23:30] LABS: Hep B Surf AB Non-Reactive (NonReactive)
[2019-01-07 23:31] LABS: HIV (1/2) Antibody/Antigen Non-Reactive (NonReactive); HIV 1/2 INDEX 0.05 S/CO (<1.00)
[2019-01-08 00:52] LABS: Bacteria/HPF None Seen HPF (None Seen); Bilirubin Negative (Negative); Blood, Urine Negative (Negative); Calcium Oxalate Crystals 4+ HPF (None Seen); Clarity Clear (Clear); Glucose, Urine (Dipstick) Normal (Negative); Leukocyte Negative Leu/uL (Negative); Nitrite Negative (Negative); Protein, Urine (Dipstick) 50 mg/dL (Neg-Trace); RBC/HPF 0-3 HPF (0-3); Squamous Epithelial 0-3 HPF (0-3); Urobilinogen Normal mg/dL (Less than 2)
[2019-01-08 00:59] LABS: Amphetamine Not Detected (NotDetected); Barbiturates Screen Not Detected (NotDetected); Benzodiazepine Screen Not Detected (NotDetected); Cocaine Metabolite Screen Not Detected (NotDetected); Medtox Control Line Valid? VALID (VALID); Medtox Reader # READER 4; Methadone Not Detected (NotDetected); Methamphetamine Not Detected (NotDetected); Opiate Screen Not Detected (NotDetected); Oxycodone Screen Not Detected (NotDetected); Phencyclidine (PCP) Not Detected (NotDetected); THC/Cannabinoid Screen Not Detected (NotDetected); Tricyclic Screen Not Detected (NotDetected)
--- NOTE | 2019-01-08 08:31 | ULT ---
PRELIMINARY REPORT/[facility]/EMERGENCY AFTER HOURS PROCEDURE: PROCEDURE INFORMATION: Exam: US , Limited Exam date and time: 01/07/2019 11:35 PM Clinical history: 23 years old, female; Pain; Other: Contractions, unknown dates, no pnc; Gestational age or lmp: 26wks; TECHNIQUE: Imaging protocol: Real-time ultrasound of the maternal uterus with image documentation. Exam focused on the clinical indication. COMPARISON: No relevant prior studies available. FINDINGS: Single living intrauterine gestation in vertex presentation. heart rate: 144 bpm. AUA: 26w4d. SHANIA(AUA): 04/11/2019. EFW: 941g. Visualized anatomy is unremarkable. Placenta is posterior. No abruption. FRANCIE: 16cm. Cervix is closed measuring 5.2 cm in length. IMPRESSION: Single viable intrauterine . No acute findings. Thank you for allowing us to participate in the care of your patient. Dictated and Authenticated by: Elia Serrato MD 01/08/2019 1:07 AM Central Time ([place] & [place]) FINAL REPORT: OB ULTRASOUND: PROVIDED CLINICAL HISTORY: Contractions, unknown dates. COMPARISON: None. FINDINGS/IMPRESSION: Agree with the preliminary interpretation given by YANIQUE. Transcribed Date/Time: 01/08/2019 8:48 AM
[2019-01-09 19:48] LABS: Chlamydia by PCR Not Detected (NotDetected); GC by PCR Not Detected (NotDetected)
== END 2019-01-08 01:37 | disposition home or self-care (01) ==
LOC: L&D/OP 20:56
PROVIDERS: ATTEND Obstetrics & Gynecology
DX: O47.9 False labor, unspecified (principal); O09.30 Supervision of pregnancy with insufficient antenatal care, unspecified trimester; O99.519 Diseases of the respiratory system complicating pregnancy, unspecified trimester; J45.909 Unspecified asthma, uncomplicated; Z3A.00 Weeks of gestation of pregnancy not specified
CPT/HCPCS: 36415; 76805; 80053; 80306; 81001; 85027; 86706; 86762; 86780; 86850; 86900; 86901; 87389; 87491; 87591

== ENCOUNTER 2019-03-11 10:00 | Day surgery (SDC) | payer OTHER ==
[2019-03-11 10:35] VITALS: BMI 31.9
[2019-03-11] MEDS: Sodium Chloride 0.9% 1,000 ML IV SCH ×2 (11:10→11:46)
[2019-03-11] MEDS ORDERED: Acetaminophen 500 MG TAB PO PRN (11:23)
[2019-03-11] MEDS ORDERED: Iron Sucrose Complex 500 MG in Sodium Chloride 0.9% 250 ML 250 ML IVPB SCH (12:00)
== END 2019-03-11 16:16 | disposition home health service (06) ==
LOC: L&D/OP 10:00 → UNDOADMIN 10:08 → L&D 10:08 → L&D/OP 16:16
PROVIDERS: ATTEND Obstetrics & Gynecology
DX: O99.019 Anemia complicating pregnancy, unspecified trimester (principal); D64.9 Anemia, unspecified; Z3A.00 Weeks of gestation of pregnancy not specified
CPT/HCPCS: J1756; J7050

== ENCOUNTER 2019-03-27 21:24 | Day surgery (SDC) | payer OTHER ==
[2019-03-27 21:56] VITALS: BP 131/75; TEMP 98.6; BMI 32.3
[2019-03-27] MEDS ORDERED: hydrALAZINE 20 MG/ML VIAL SLOW IVP PRN (23:10)
[2019-03-27] MEDS ORDERED: Lactated Ringer's 2,000 ML IV SCH (23:30)
--- NOTE | 2019-03-28 08:21 | PRG ---
DATE OF SERVICE: 03/27/2019 PRIMARY OB: Daniel Holloway DO, MS. CHIEF COMPLAINT: Abdominal pain. HISTORY OF PRESENT ILLNESS: The patient is a 23-year-old G5, P2 female with an intrauterine at 37 weeks and 6 days, presenting to Labor and Delivery with uterine contractions that began earlier in the evening, which she reported is mainly pressure and lower abdominal pain and could not report how often she is feeling the contractions, but did state several times an hour. The patient denies any leakage of fluid or vaginal bleeding. She denies any trauma or falls, headache, chest pain, shortness of breath and dizziness, fever or chills, nausea, vomiting. Denies diarrhea or dysuria. PAST MEDICAL HISTORY: Significant for asthma, last use of her inhaler is 1-2 years ago. PAST SURGICAL HISTORY: She had a cholecystectomy. ALLERGIES: NO KNOWN DRUG ALLERGIES. MEDICATIONS: vitamins. SOCIAL HISTORY: Denies drug, alcohol, or tobacco use. OB HISTORY: She has had 2 term uncomplicated deliveries and has had two 1st trimester miscarriages. OB LABORATORY DATA: Unavailable at the time of dictation. REVIEW OF SYSTEMS: Per HPI. PHYSICAL EXAMINATION: VITAL SIGNS: 131/75, heart rate of 90, respiratory rate of 18, saturating 100% on room air. GENERAL: She appears to be in no acute distress. She is alert, oriented, cooperative, and pleasant to interact with. HEAD: Normocephalic, atraumatic. LUNGS: Clear to auscultation bilaterally. HEART: Regular rate and rhythm. ABDOMEN: Gravid, soft, nontender. EXTREMITIES: Nontender, nonedematous. CERVICAL: She is 4, 60, -2 station. She was reported to be 2 cm dilated earlier in the morning at her primary OB visit. heart tracing shows the fetus with a baseline in the 130s with moderate long-term variability, positive 15 x 15 accelerations, no decelerations. Contractions appear to be every 6 to 10 minutes. A repeat exam at 3 and 4 hours after her initial exam showed no change at 4, 15, -2 station. ASSESSMENT AND PLAN: The patient is a 23-year-old female, with an intrauterine at 37 weeks and 6 days, presenting for contractions and appears to be in latent labor. Again, the patient has been monitored here for 4 hours without any cervical change. Contractions appeared to stay fairly spaced out and irregular. The patient is being discharged to home with diagnosis of latent labor. Fetus has a category 1 tracing and reactive NST. The patient is being discharged home with term labor precautions and instructions to follow up with Dr. Holloway as scheduled. Job ID: [id number]
== END 2019-03-28 01:25 | disposition home health service (06) ==
LOC: L&D/OP 21:24
PROVIDERS: ATTEND Obstetrics & Gynecology
DX: O47.1 False labor at or after 37 completed weeks of gestation (principal); O09.293 Supervision of pregnancy with other poor reproductive or obstetric history, third trimester; Z3A.37 37 weeks gestation of pregnancy

== ENCOUNTER 2019-04-05 21:28 | Inpatient (IN) | payer OTHER ==
[2019-04-05 22:07] VITALS: BMI 32.3
[2019-04-05] MEDS ORDERED: Butorphanol Tartrate 1 MG/ML VIAL SLOW IVP PRN (22:47)
[2019-04-05] MEDS ORDERED: hydrALAZINE 20 MG/ML VIAL SLOW IVP PRN (22:47)
[2019-04-05] MEDS ORDERED: Promethazine HCl 25 MG/ML VIAL IM PRN (22:47)
[2019-04-05] MEDS ORDERED: Ondansetron PF 4 MG/2 ML Vial IVP PRN (22:47)
[2019-04-05] MEDS ORDERED: Ibuprofen 800 MG TAB PO PRN (23:00)
[2019-04-05] MEDS ORDERED: Methylergonovine 0.2 MG/ML VIAL IM PRN (23:00)
[2019-04-05] MEDS ORDERED: HYDROcodone/Acetaminophen 5/325 mg Tablet PO PRN ×2 (23:00)
[2019-04-05] MEDS ORDERED: Carboprost 250 MCG/ML AMP IM PRN (23:00)
[2019-04-05] MEDS ORDERED: Misoprostol 200 MCG TAB RC PRN (23:00)
[2019-04-05] MEDS ORDERED: NS w/ Oxytocin 10 units 500 ML IV SCH ×2 (23:00)
[2019-04-05] MEDS ORDERED: NS / Oxytocin 40 units/1000ml 1,000 ML IV SCH (23:00)
[2019-04-05] MEDS ORDERED: Lidocaine 1% (PF) 30 ML VIAL SC PRN (23:00)
[2019-04-05] MEDS: Lactated Ringer's 1,000 ML IV SCH (23:00)
[2019-04-05 23:58] LABS: Hemoglobin 9.7 g/dL (12.0-16.0); Mean Corpuscular HGB CONC 32.4 g/dL (32.0-36.0); Mean Corpuscular Hemoglobin 23.8 pg (27.0-31.0); Mean Corpuscular Volume 73.4 fL (78.0-98.0); Mean Platelet Volume 6.6 fL (7.4-10.4); Platelet Count 186 thou/uL (130-400); Red Blood Cell (RBC) Count 4.08 mill/uL (4.20-5.40); White Blood Cell (WBC) Count 8.9 thou/uL (4.8-10.8)
[2019-04-06] MEDS ORDERED: Fentanyl 4 mcg/Bup 0.1% Cadd 100 ML ONE (00:11)
[2019-04-06 00:29] LABS: Syphilis Antibody Nonreactive (Nonreactive); Syphilis Antibody Index 0.06 S/CO (<1.00 Non-Reactive)
[2019-04-06 00:30] LABS: Hep B Surf Ag Non-Reactive S/CO (NonReactive)
[2019-04-06] MEDS ORDERED: Lidocaine 1.5%/Epinephrine 1:200,000 5 ML AMPUL IJ ONE (00:50)
[2019-04-06] MEDS ORDERED: Lactated Ringer's 500 ML IV PRN (01:13)
[2019-04-06] MEDS ORDERED: Promethazine HCl 25 MG/ML VIAL IM PRN (01:13)
[2019-04-06] MEDS ORDERED: diphenhydrAMINE 50 MG/ML VIAL IVP PRN (01:13)
[2019-04-06] MEDS ORDERED: ePHEDrine/0.9% NaCl/PF SYRINGE 50 mg/10 ml SLOW IVP PRN (01:13)
[2019-04-06] MEDS ORDERED: Ondansetron PF 4 MG/2 ML Vial IVP PRN ×2 (01:13→12:25)
[2019-04-06] MEDS ORDERED: Acetaminophen 325 MG TAB PO PRN (01:13)
[2019-04-06] MEDS ORDERED: Naloxone HCl 0.4 mg/ml Vial IVP PRN ×2 (01:13)
[2019-04-06] MEDS ORDERED: Communication Order-Pharmacy FS SCH (01:15)
[2019-04-06] MEDS ORDERED: Fentanyl 4 mcg/Bupivacaine 0.1% Cassette 100 ML EPIDURAL SCH (01:15)
[2019-04-06] MEDS: Lactated Ringer's 1,000 ML IV SCH (07:15)
[2019-04-06] MEDS ORDERED: Lidocaine 1% (PF) 30 ML VIAL ONE (07:22)
[2019-04-06] MEDS ORDERED: NS / Oxytocin 40 units/1000ml 1,000 ML ONE (07:22)
--- NOTE | 2019-04-06 07:42 | PDOC.OPDEL ---
OB Operative/Delivery Note Delivery Dr/Surgeon: Artis anderson Pre-Delivery Diagnosis: active labor Procedure/Post Delivery Dx: spontaneous vaginal delivery Anesthesia: epidural - Additional Findings/Plan Placenta delivered: spontaneous Repaired Obstetrical Laceration: 1st degree Estimated blood loss: 200mL Post delivery plan: routine recovery
[2019-04-06] MEDS ORDERED: Methylergonovine 0.2 MG/ML VIAL IM PRN (12:25)
[2019-04-06] MEDS ORDERED: Benzocaine-Menthol 82.5 ML CAN TOP PRN (12:25)
[2019-04-06] MEDS ORDERED: Milk Of Magnesia 30 ML UDCUP PO PRN (12:25)
[2019-04-06] MEDS ORDERED: NS / Oxytocin 40 units/1000ml 1,000 ML IV SCH (12:25)
[2019-04-06] MEDS ORDERED: Lanolin Ointment 7 GM TUBE TOP PRN (12:25)
[2019-04-06] MEDS ORDERED: Misoprostol 200 MCG TAB VAG PRN (12:25)
[2019-04-06] MEDS ORDERED: Bisacodyl 10 MG SUPP PR PRN (12:25)
[2019-04-06] MEDS ORDERED: hydrALAZINE 20 MG/ML VIAL SLOW IVP PRN (12:25)
[2019-04-06] MEDS ORDERED: Adacel (T-DAP) 0.5 ML SYRINGE IM ONE (12:25)
[2019-04-06] MEDS ORDERED: HYDROcodone/Acetaminophen 5/325 mg Tablet PO PRN ×2 (12:25)
[2019-04-06] MEDS: Docusate Calcium (SURFAK) 240 MG CAP PO SCH ×2 (12:37→21:50)
[2019-04-06] MEDS: Ferrous Sulfate 325 MG TAB PO SCH ×2 (12:37→17:35)
[2019-04-06] MEDS: Prenatal Vitamin 1 TAB PO SCH (12:38)
[2019-04-06] MEDS: Ibuprofen 800 MG TAB PO SCH ×2 (15:10→21:50)
[2019-04-07] MEDS: Ibuprofen 800 MG TAB PO SCH (05:54)
[2019-04-07] MEDS: Ferrous Sulfate 325 MG TAB PO SCH (09:26)
[2019-04-07] MEDS: Docusate Calcium (SURFAK) 240 MG CAP PO SCH (09:27)
[2019-04-07] MEDS: Prenatal Vitamin 1 TAB PO SCH (09:27)
[2019-04-07] MEDS ORDERED: FLU VACC QS2019-20(6MOS UP)/PF 60 MCG/0.5 ML SYRINGE IM ONE (09:30)
[2019-04-07 12:00] VITALS: BP 116/71; TEMP 98.3
--- NOTE | 2019-04-07 13:27 | PDOC.LDHP ---
Labor and Delivery H&P Chief complaint: contractions Allergies/Adverse Reactions: Allergies Allergy/AdvReac Type Severity Reaction Status Date / Time No Known Drug Allergies Allergy Verified 04/05/19 22:08
--- NOTE | 2019-04-10 01:29 | PQF ---
Monica Heck JAMIE DO [id number] CLINICAL DOCUMENTATION CLARIFICATION FORM: POST DISCHARGE Addendum to original discharge summary date: ____ Late entry note date: __ DATE: 04/10/19 ATTN: Daniel Link Please exercise your independent, professional judgment in responding to the clarification form. Clinical indicators are provided on the bottom of this form for your review Please check appropriate box(s): [ ] Acute blood loss anemia [ ] Post-op anemia related to acute blood loss [ ] Chronic Blood loss Anemia [ x ] Other diagnosis pregnancy [ ] Unable to determine In addition, please specify: Present on Admission (POA): [ ] Yes [ ] No [ ] Unable to determine For continuity of documentation, please document condition throughout progress notes and discharge summary. Thank You. CLINICAL INDICATORS - SIGNS / SYMPTOMS / LABS Laboratory Hematology 04/05 Hgb9.7, Hct 30.0 L&D p1 04/05 Estimated blood loss of 200ml L&D p1 04/05 1st degree Obstetrical laceration RISK FACTORS Scanned H&P p1 Maternal history of Anemia Scanned H&P p1 39 weeks gestation L&D p1 04/05 s/p TREATMENTS: JUN 28 Ferrous Sulfate if Hgb <10gms (This form is maintained as a part of the permanent medical record) 2014 [employer] All Rights Reserved [email or web address] [not provided] [email or web address]
== END 2019-04-07 14:00 | disposition home or self-care (01) | DRG 807 ==
LOC: L&D/OP 21:28 → L&D 22:44 → 3SW 04-06 12:41
PROVIDERS: ADMIT Obstetrics & Gynecology; ATTEND Obstetrics & Gynecology
PROC: 10E0XZZ Delivery of Products of Conception, External Approach (ICD-10-PCS; principal; 2019-04-05)
PROC: 0HQ9XZZ Repair Perineum Skin, External Approach (ICD-10-PCS; 2019-04-05)
DX: O99.013 Anemia complicating pregnancy, third trimester (principal); Z37.0 Single live birth; Z3A.39 39 weeks gestation of pregnancy; O70.0 First degree perineal laceration during delivery; D64.9 Anemia, unspecified
CPT/HCPCS: 36415; 51702; 85027; 86780; 86850; 86900; 86901; 87340; 99285; J2001; J2590; J3490

== ENCOUNTER 2019-09-21 21:14 | Emergency (ER) | payer OTHER ==
[2019-09-21 21:52] LABS: Bacteria/HPF 3+ HPF (None Seen); Bilirubin Negative (Negative); Blood, Urine Negative (Negative); Clarity Turbid (Clear); Glucose, Urine (Dipstick) Normal (Negative); Leukocyte 500 Leu/uL (Negative); Nitrite Negative (Negative); Protein, Urine (Dipstick) 20 mg/dL (Neg-Trace); RBC/HPF 0-3 HPF (0-3); Squamous Epithelial 21-50 HPF (0-3); Urobilinogen Normal mg/dL (Less than 2)
[2019-09-21 21:54] LABS: Pregnancy Test - Urine (BHCG) Negative (Negative); Pregu Control Background? CLEAR/WHITE (CLR/WHITE); Pregu Control Bar Appear? YES (CONTROL BAR); Specific Gravity 1.023 (1.002-1.036)
[2019-09-21] MEDS ORDERED: Lidocaine Viscous Sol 2% 15 ml UD Cup ONE (22:09)
[2019-09-21] MEDS ORDERED: Mag-Al 1200 mg/1200 mg/30 ML UDCUP ONE (22:09)
== END 2019-09-21 23:42 | disposition home or self-care (01) ==
LOC: ERS 21:14
DX: R10.13 Epigastric pain (principal); N39.0 Urinary tract infection, site not specified; J45.909 Unspecified asthma, uncomplicated; D64.9 Anemia, unspecified
CPT/HCPCS: 81003; 81015; 81025; 99284

== ENCOUNTER 2020-10-27 19:09 | Emergency (ER) | payer OTHER | END 2020-10-27 20:04 | disposition home or self-care (01) | LOC: ERS 19:09 | DX: O99.891 Other specified diseases and conditions complicating pregnancy (principal); Z04.3 Encounter for examination and observation following other accident; Z71.1 Person with feared health complaint in whom no diagnosis is made; D64.9 Anemia, unspecified; J45.909 Unspecified asthma, uncomplicated; Z3A.26 26 weeks gestation of pregnancy | CPT/HCPCS: 99283 ==

== ENCOUNTER 2021-08-19 09:35 | Emergency (ER) | payer OTHER ==
[2021-08-19 10:09] LABS: #Eosinphils 0.2 thou/uL (0.0-0.7); #Lymphocytes 2.3 thou/uL (1.20-3.40); #Monocytes 0.3 thou/uL (0.11-0.59); #Neutrophils 2.6 thou/uL (1.40-6.50); %Basophils 0.7 % (0.0-1.0); %Eosinophils 3.9 % (0.0-10.0); %Lymphocytes 42.1 % (21.0-51.0); %Monocytes 5.7 % (0.0-10.0); %Neutrophils 47.5 % (42.0-75.0); Hemoglobin 12.4 g/dL (12.0-16.0); Mean Corpuscular HGB CONC 31.4 g/dL (32.0-36.0); Mean Corpuscular Hemoglobin 26.3 pg (27.0-31.0); Mean Corpuscular Volume 83.6 fL (78.0-98.0); Mean Platelet Volume 8.8 fL (7.4-10.4); Platelet Count 259 thou/uL (130-400); Red Blood Cell (RBC) Count 4.74 mill/uL (4.20-5.40); White Blood Cell (WBC) Count 5.6 thou/uL (4.8-10.8)
[2021-08-19 10:39] LABS: ALT (SGPT) 29 U/L (8-55); AST (SGOT) 31 U/L (5-34); Albumin 3.9 g/dL (3.5-5.0); Alkaline Phosphatase 82 U/L (40-110); Anion Gap 12 mmol/L (10-20); BUN (Urea Nitrogen) 7 mg/dL (7.0-18.7); Bilirubin, Total 0.5 mg/dL (0.2-1.2); Calc. Creatinine Clearance 0 mL/min (70-130); Carbon Dioxide 22 mmol/L (22-29); Chloride 107 mmol/L (98-107); Globulin 3.4 g/dL (2.4-3.5); Glucose 98 mg/dL (70-105); Potassium 4.2 mmol/L (3.5-5.1); Protein, Total 7.3 g/dL (6.0-8.3); Sodium 137 mmol/L (136-145)
== END 2021-08-19 12:30 | disposition home or self-care (01) ==
LOC: ERS 09:35
DX: R07.89 Other chest pain (principal)
CPT/HCPCS: 36415; 71045; 80053; 84484; 85025; 93005

== ENCOUNTER 2022-07-04 19:39 | Emergency (ER) | payer OTHER ==
[2022-07-04 20:26] LABS: BHCG - Serum POSITIVE (NEGATIVE); Pregs Control Background? CLEAR/WHITE (CLR/WHITE); Pregs Control Bar Appear? YES (CONTROL BAR)
[2022-07-04 20:30] LABS: Bacteria/HPF 4+ HPF (None Seen); Bilirubin Negative (Negative); Blood, Urine Negative (Negative); Clarity Clear (Clear); Glucose, Urine (Dipstick) Normal (Negative); Ketone, Urine 150 mg/dL (Negative); Leukocyte 25 Leu/uL (Negative); Nitrite 2+ (Negative); Protein, Urine (Dipstick) Negative (Neg-Trace); RBC/HPF 0-3 HPF (0-3); Specific Gravity, Urine 1.015 (1.002-1.036); Squamous Epithelial 0-3 HPF (0-3); Urobilinogen Normal mg/dL (Less than 2); WBC/HPF 0-3 HPF (0-3)
[2022-07-04] MEDS ORDERED: Acetaminophen 500 MG TAB ONE (20:31)
== END 2022-07-04 20:56 | disposition home or self-care (01) ==
LOC: ERS 19:39
DX: O99.891 Other specified diseases and conditions complicating pregnancy (principal); Z3A.00 Weeks of gestation of pregnancy not specified
CPT/HCPCS: 36415; 81003; 81015; 84703; 87077; 87081; 87086; 87186; 87430; 99283